=== PATIENT | female | born 1970 | race Caucasian/White ===

== ENCOUNTER 2017-01-25 17:10 | Inpatient (IN) | payer OTHER ==
[~2017-01-25] VITALS: Ht 152.4 cm; Wt 52.2 kg
--- NOTE | 2017-01-25 17:24 | NUR ---
PT STTAES THAT SHE WENT TO [facility] TO BE ADMITTED FOR ETOH DETOX , HAS BEEN DRINKING FOR THE PAST YEAR, PT LAST DETOX WAS AT [facility] FROM 12/15 TILL 01/17 AND STARTED DRINKING AGAIN 01/19. PT LAST DRANK OUTSIDE ER AND STATES THAT SHE DRINKS VODKA DAILY . PT HAS HISTORY OF WITHDRAWAL SEIZURES. DENIES SI/HI. WAS TOLD BY DR SANDRA TO COME IN
--- NOTE | 2017-01-25 19:10 | ED PSYCHIATRIC COMPLAINT ---
History of Present Illness General Chief Complaint: ETOH/Drug Related Complaint Stated Complaint: ALCHOOL DETOX Vital Signs & Intake/Output Vital Signs & Intake/Output Vital Signs Date Time Temp Pulse Resp B/P B/P Pulse O2 O2 Flow FiO2 Mean Ox Delivery Rate 01/25 1716 98.1 108 18 148/102 98 Room Air Allergies Coded Allergies: aspirin (From TALWIN COMPOUND) (Severe, RENAL FAILURE 01/25/17) pentazocine (From TALWIN [employer]) (Severe, RENAL FAILURE 01/25/17) imipramine (Mild, HIVES 01/25/17) Uncoded Allergies: CODIENE (Mild, HIVES 01/25/17) PCN (Mild, RASH 01/25/17) Triage Note: PT STTAES THAT SHE WENT TO [facility] TO BE ADMITTED FOR ETOH DETOX , HAS BEEN DRINKING FOR THE PAST YEAR, PT LAST DETOX WAS AT [facility] FROM 12/15 TILL 01/17 AND STARTED DRINKING AGAIN 01/19. PT LAST DRANK OUTSIDE ER AND STATES THAT SHE DRINKS VODKA DAILY . PT HAS HISTORY OF WITHDRAWAL SEIZURES. DENIES SI/HI. WAS TOLD BY DR SANDRA TO COME IN : No Patient currently breastfeeds: No Past History Travel History Traveled to [place] past 21 day No Medical History Neurological: NONE EENT: NONE Cardiovascular: hypertension Respiratory: NONE Gastrointestinal: NONE Hepatic: NONE Renal: NONE Musculoskeletal: NONE Psychiatric: NONE Endocrine: NONE Blood Disorders: NONE Cancer(s): NONE Psychosocial History What is your primary language Divehi Tobacco Use: Never used ETOH Use: alcoholic Illicit Drug Use: denies illicit drug use Progress Plan of Care: Orders Procedure Date/time Status CIKS 01/26 1912 Active URINE DRUG SCREEN FOR ER ONLY 01/26 1912 Active ETHANOL 01/26 1912 Active COMPREHENSIVE METABOLIC PANEL 01/26 1912 Active CBC WITHOUT DIFFERENTIAL 01/26 1912 Active Departure Departure Condition: Stable Referrals: EMRE PALMER,JACKIE Sy (PCP/Family) Departure Forms: Customer Survey General Discharge Information
[2017-01-25] MEDS ORDERED: CALCIUM 500 +1 EAC5 PO (19:23)
[2017-01-25] MEDS ORDERED: SERTRALINE HCL100 MG PO (19:23)
--- NOTE | 2017-01-25 19:34 | ED PSYCHIATRIC COMPLAINT ---
See Addendum History of Present Illness General Chief Complaint: ETOH/Drug Related Complaint Stated Complaint: ALCHOOL DETOX Source: patient, family Exam Limitations: no limitations Vital Signs & Intake/Output Vital Signs & Intake/Output Vital Signs Date Time Temp Pulse Resp B/P B/P Pulse O2 O2 Flow FiO2 Mean Ox Delivery Rate 01/26 0143 103 18 150/118 01/26 0141 97.3 103 20 150/118 01/26 0020 97.8 98 18 130/80 01/26 0020 97.8 98 18 130/80 97 01/25 2210 98.3 101 18 128/87 01/25 2209 98.3 101 18 128/87 97 Room Air 01/25 2009 97.8 104 18 136/90 98 Room Air 01/26 2008 97.8 104 18 136/90 01/25 2002 Room Air 01/25 1716 98.1 108 18 148/102 98 Room Air ED Intake and Output 01/26 0000 01/25 1200 Intake Total 1000 Output Total Balance 1000 Intake, IV 1000 Intake, Oral 0 Patient 115 lb Weight Allergies Coded Allergies: aspirin (From TALWIN COMPOUND) (Severe, RENAL FAILURE 01/25/17) pentazocine (From TALWIN [employer]) (Severe, RENAL FAILURE 01/25/17) imipramine (Mild, HIVES 01/25/17) Penicillins (RASH 01/25/17) codeine (HIVES 01/25/17) Reconcile Medications Calcium Carbonate/Vitamin D3 (Calcium 500 + D Tablet) (Unknown Strength) TABLET (Unknown Dose) PO DAILY SUPPLEMENT (Reported) Sertraline HCl 100 MG TABLET 1.5 TAB PO DAILY MENTAL HEALTH (Reported) Triage Note: PT STTAES THAT SHE WENT TO [facility] TO BE ADMITTED FOR ETOH DETOX , HAS BEEN DRINKING FOR THE PAST YEAR, PT LAST DETOX WAS AT [facility] FROM 12/15 TILL 01/17 AND STARTED DRINKING AGAIN 01/19. PT LAST DRANK OUTSIDE ER AND STATES THAT SHE DRINKS VODKA DAILY . PT HAS HISTORY OF WITHDRAWAL SEIZURES. DENIES SI/HI. WAS TOLD BY DR SANDRA TO COME IN Triage Nurses Notes Reviewed? yes Onset: Gradual Duration: constant Timing: recent history Severity: severe Severity Numbers: 10 : No Patient currently breastfeeds: No HPI: Patient is a 46-year-old female with past medical history of ETOH dependency and alcohol withdrawal seizures in which last seizure was one month ago where patient was admitted to [facility] [place] FOR alcohol inpatient treatment. Patient states that for the last 4 days she's been persistently drinking alcohol last drink 2 hours prior to arrival. Patient states that she feels as if she is withdrawing. Patient denies any illicit drug use denies any homicidal or suicidal ideation. Has positive for mild nausea. Denies any abdominal pain Patient was evaluated at [facility] and was advised to present to the emergency room for concerns of medical evaluation (MAVERICK LIRA) Past History Travel History Traveled to [facility] past 21 day No Medical History Any Pertinent Medical History? see below for history Neurological: NONE EENT: NONE Cardiovascular: hypertension Respiratory: NONE Gastrointestinal: NONE Hepatic: NONE Renal: NONE Musculoskeletal: NONE Psychiatric: NONE Endocrine: NONE Blood Disorders: NONE Cancer(s): NONE Other Medical Hx: ETOH ABUSE Surgical History Surgical History: non-contributory Psychosocial History What is your primary language Pashto Tobacco Use: Never used ETOH Use: alcoholic Illicit Drug Use: denies illicit drug use Family History Hx Contributory? No (MAVERICK LIRA) Review of Systems Review of Systems Constitutional: Reports: no symptoms. EENTM: Reports: no symptoms. Respiratory: Reports: no symptoms. Cardiovascular: Reports: no symptoms. GI: Reports: see HPI, nausea. Denies: abdominal pain. Genitourinary: Reports: no symptoms. Musculoskeletal: Reports: no symptoms. Skin: Reports: no symptoms. Neurological/Psychological: Reports: no symptoms. Hematologic/Endocrine: Reports: no symptoms. Immunologic/Allergic: Reports: no symptoms. All Other Systems: Reviewed and Negative (MAVERICK LIRA) Physical Exam Physical Exam General Appearance: intoxicated Head: atraumatic Eyes: Bilateral: normal appearance, PERRL, EOMI. Ears, Nose, Throat: normal pharynx, normal ENT inspection Respiratory: normal breath sounds, chest non-tender, no respiratory distress Cardiovascular: regular rate/rhythm Gastrointestinal: normal bowel sounds, soft, non-tender Neurological/Psychiatric: no motor/sensory deficits, awake, calm Appearance/Memory/Insight: appropriate insight, denies illness, disheveled Behavoir/Eye Contact/Speech: cooperative, normal speech, good eye contact Thoughts/Hallucinations: normal thought pattern, no apparent hallucination SAD PERSONS Done? patient not suicidal (MAVERICK LIRA) Progress Differential Diagnosis: drug intoxication, drug overdose, drug withdrawal, electrolyte abnormality, encephalitis, hypoglycemia, hypothyroidism, IC hem/mass /tumor, meningitis Plan of Care: Orders Procedure Date/time Status URINE 01/25 1921 Complete CIWA 01/26 1912 Active URINE DRUG SCREEN FOR ER ONLY 01/26 1912 Complete LIPASE 01/26 1912 Complete ETHANOL 01/26 1912 Complete COMPREHENSIVE METABOLIC PANEL 01/26 1912 Complete CBC WITHOUT DIFFERENTIAL 01/26 1912 Complete AMYLASE 01/26 1912 Complete Current Medications Sig/Sarah Start time Last Medication Dose Stop Time Status Admin Lorazepam 2 MG ONCE ONE 01/26 200 UNVr 01/26 (Ativan) 01/26 201 0153 Lorazepam 2 MG ONCE ONE 01/26 200 UNVr 01/26 (Ativan) 01/26 201 020 Laboratory Tests 01/25/171954: Anion Gap 15, Estimated GFR > 60, BUN/Creatinine Ratio 27.1 H, Glucose 99, Calcium 9.0, Total Bilirubin 0.2, AST 31, ALT 43, Alkaline Phosphatase 149 H, Total Protein 7.1, Albumin 4.6, Globulin 2.5, Albumin/Globulin Ratio 1.8, Amylase 52, Lipase 212, Serum Alcohol 245.0 01/25/171937: Urine Opiates Screen < 100.00, Methadone Screen < 40, Barbiturate Screen < 60, Ur Phencyclidine Scrn < 6.00, Amphetamines Screen < 100, U Benzodiazepines Scrn < 85, Urine Cocaine Screen < 50, Urine Cannabis Screen < 5.00, Urine Test NEGATIVE 01/25/171934: CBC w Diff NO MAN DIFF REQ, RBC 4.78, MCV 83.8, MCH 28.2, RDW 13.4, MPV 6.5 L, Gran % 39.8 L, Lymphocytes % 47.8, Monocytes % 9.2, Eosinophils % 2.7, Basophils % 0.5, Absolute Granulocytes 2.8, Absolute Lymphocytes 3.4, Absolute Monocytes 0.6, Absolute Eosinophils 0.2, Absolute Basophils 0, PUBS MCHC 33.7 01/25/171920: Amylase Cancelled, Lipase Cancelled, Methadone Screen Cancelled, Barbiturate Screen Cancelled, Ur Phencyclidine Scrn Cancelled, Amphetamines Screen Cancelled , U Benzodiazepines Scrn Cancelled, Urine Cocaine Screen Cancelled, Urine Cannabis Screen Cancelled Patient currently shows a 245 alcohol and which first CIWA scoring is 4 4557 REPEAT CIWA 3 0100 REPEAT CIWA 5 Discussed disposition and plan with Dr. Hernández in which patient's had left for the evening where patient will be reevaluated for alcohol withdrawal symptoms and either be admitted if he scores over an 8 or the patient will be admitted to [facility]. Discussed disposition plan with patient who currently agrees and has no questions (MAVERICK LIRA) Hand-Off Endorsed To: LARISA HERNÁNDEZ MD Endorsed Time: 99 Pending: other (CIWA) (MAVERICK LIRA) Departure Departure Disposition: STILL A PATIENT Condition: Stable Referrals: EMRE PALMER,JACKIE Sy (PCP/Family) Departure Forms: Customer Survey General Discharge Information (MAVERICK LIRA) Departure Clinical Impression Primary Impression: Alcohol withdrawal syndrome Admission Note Spoke With: AUGUSTINA TORRES MD Documentation of Exam: Documentation of any treatments & extenuating circumstances including Concerns Regarding Discharge (functional status, medication knowledge or non-compliance, living conditions, etc.) that warrant an admission rather than observation: pt with ciwa of 10, h/o recent seizures... merits admission for alcohol detoxification with iv and po benzos (LARISA HERNÁNDEZ MD) Critical Care Note Critical Care Note Critical Care Time: 30-74 min (ISRAEL PALMER,LARISA Woodard)
--- NOTE | 2017-01-25 19:41 | NUR ---
IV EST, BLOOD WORK DRAWN AND SENT TO LAB: SST, LAV, BLUE, FISCHER AND PINK TOPS. URINE TRIO SENT TO LAB NOW. IV NS LITER BOLUS INFUSING NOW. PT MEDICATED WITH ZOFRAN.
[2017-01-25 19:45] LABS: ABSOLUTE BASOPHIL COUNT 0 /CUMM (0.0-0.2); ABSOLUTE EOSINOPHIL COUNT 0.2 /CUMM (0.0-0.7); ABSOLUTE GRANULOCYTE CT 2.8 /CUMM (1.4-6.5); ABSOLUTE LYMPH COUNT 3.4 /CUMM (1.2-3.4); ABSOLUTE MONOCYTE COUNT 0.6 /CUMM (0.10-0.60); BASOPHIL % 0.5 % (0.0-2.0); EOSINOPHIL % 2.7 % (0-5); GRANULOCYTE % 39.8 % (42.2-75.2); HEMATOCRIT 40.1 % (37-47); MEAN CORPUSCULAR HGB 28.2 PG (27.0-31.0); MEAN CORPUSCULAR HGB CONC 33.7 G/DL (33.0-37.0); MEAN CORPUSCULAR VOLUME 83.8 FL (81.0-99.0); MEAN PLATELET VOLUME 6.5 FL (7.4-10.4); PLATELET COUNT 341 /CUMM (130-400); RBC DISTRIBUTION WIDTH 13.4 % (11.5-14.5); RED BLOOD CELL CT 4.78 /CUMM (4.20-5.40); WHITE BLOOD CELL COUNT 7.1 /CUMM (4.8-10.8)
[2017-01-25 20:08] VITALS: BP 136/90
--- NOTE | 2017-01-25 20:24 | NUR ---
FREDERIC HANLEY AT BEDSIDE TO DISCUSS POC.
--- NOTE | 2017-01-25 21:15 | NUR ---
BOXED LUNCH ORDERED.
--- NOTE | 2017-01-25 21:23 | NUR ---
PT EATING BOXED LUNCH PER FREDERIC Gross PT NOT NEEDING TO BE CHANGED OR WANDED AT THIS TIME
[2017-01-25 22:10] VITALS: BP 128/87
--- NOTE | 2017-01-25 22:14 | NUR ---
PT COMPLAIN OF HIP PAIN. PER PT USUALLY HAS HIP PAIN WHEN W/DING. FREDERIC Gross AWARE.
--- NOTE | 2017-01-25 22:22 | NUR ---
PT MEDICATED WITH MOTRIN PER EMAR
[2017-01-26 00:20] VITALS: BP 130/80
--- NOTE | 2017-01-26 00:57 | NUR ---
FREDERIC Gross AT BEDSIDE TO REEVAL PT
--- NOTE | 2017-01-26 01:11 | NUR ---
PT NOW WANDED AND CHANGED. 1 BELONGING BAG IN CLOSET. PER PT OKAY TO KEEP CELL PHONE.
[2017-01-26 01:43] VITALS: BP 150/118
--- NOTE | 2017-01-26 01:55 | NUR ---
AT BEDSIDE TO KAYLYNN
--- NOTE | 2017-01-26 02:02 | NUR ---
CIWA 10. PT MEDICATED WITH 2 MG ATIVN PO, FOLLOWED BY 2 MG ATIVAN IV PER DR WOOD.
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
--- NOTE | 2017-01-26 02:37 | NUR ---
HOUSE STAFF AT BEDSIDE TO EVAL PT
[2017-01-26 03:30] VITALS: BP 126/84
--- NOTE | 2017-01-26 03:45 | NUR ---
PT BED ASSIGNMENT 209-2
--- NOTE | 2017-01-26 03:49 | NUR ---
REPORT GIVEN TO ERIK SHAW
--- NOTE | 2017-01-26 04:01 | Admission Certification ---
Admission Certification Certification Statement - As attending physician, I certify that at the time of - admission, based on clinical presentation, severity of - symptoms, need for further diagnostic testing and - therapeutic interventions, and risk of adverse outcomes - without in-hospital treatment, in my clinical assessment, - this patient requires an acute hospital stay for a minimum - of two nights or longer. I have also considered psychsocial - factors such as support system, advanced age, financial - issues, cognitive issues, and failed out-patient treatments, - past re-admission history, safety of patient, and lack of - compliance as applicable. Specific rationale supporting this admission is: Alcohol withdrawal.
[2017-01-26 04:33] VITALS: BP 136/80
[2017-01-26 05:11] VITALS: BP 136/80
--- NOTE | 2017-01-26 11:26 | PN- Att Addend ---
Attending Addendum Attending Brief Note "46 yo F with h/o alcohol dependence, withdrawal seizure, PAT (paroxysmal atrial tachycardia), depression, last detoxed at [facility] (December 2016), resumed drinking soon after, and today went to [facility] for alcohol detox, but was asked to come to ER due to high alcohol levels. She drinks Vodka daily (unable to quantify), last drink was yesterday prior to ER arrival. She had nausea and bilious vomiting, occasional heartburn, but no melena or hematemesis. Her alcohol level was 245 and her CIWAs were 8-10 in the ER. Last seizure was early this year. Ex-smoker, denies drug use. VSS. Exam unremarkable except for tremors, dry mucous membranes. Labs: BUN 19, Alk phos 149. Utox neg." 1. Alcohol withdrawal. GM admit, seizure precautions, CIWA protocol, IV ativan per CIWA, PO ativan 2 mg Q6, banana bag, Social work consult transition to [facility] for inpatient rehab, Psych consult for depression, continue zoloft. Anti-emetics and PPI for heartburn/alcoholic gastritis. Clonidine PRN for hypertension. DVT ppx Lovenox. Full code. Plan as per admitting physician, monitor CIWA, call me if any changes
--- NOTE | 2017-01-26 13:23 | Cons- Psychiatry ---
Psychiatric Consult Date of Consult: 01/26/17 Reason for Consult: Alcohol abuse and depression Allergies: Coded Allergies: aspirin (From [employer]) (Severe, RENAL FAILURE 01/25/17) pentazocine (From [employer]) (Severe, RENAL FAILURE 01/25/17) imipramine (Mild, HIVES 01/25/17) Penicillins (RASH 01/25/17) codeine (HIVES 01/25/17) Past History Past Medical History Neurological: NONE EENT: NONE Cardiovascular: hypertension associated with alcohol withdrawal Respiratory: NONE Gastrointestinal: NONE Hepatic: NONE Renal: NONE Musculoskeletal: NONE Psychiatric: alcohol dependence, depression Endocrine: NONE Blood Disorders: NONE Cancer(s): NONE Past Surgical History Surgical History: knee repair Assessment/Plan Impression: Chief complaint: "I'm not sure how much I drank yesterday " Brief HPI: 46-year-old woman, , domiciled, living in [facility] with her and 6 children with one year history of heavy alcohol use starting in October 2015 in the context of a chronic knee injury requiring surgery as well as the loss of multiple close friends, presents to [facility] for alcohol intoxication and subsequent withdrawal. Admitted to [facility] in 2016 with an alcohol withdrawal seizure, eventually requiring Ativan drip. From there attended intensive outpatient program at [facility] for about 2 months earlier in 2016, relapsed and engaged in [facility] inpatient program for 28 days, was discharged on January 17. Relapsed after 2 days. Says that she's been drinking roughly a bottle of vodka daily. Attempted to admit to [facility] yesterday however was sent to the ER due to her elevated blood alcohol level. She was subsequently admitted to the medical floor for alcohol withdrawal. Past psychiatric and substance use history: Patient denies any history of problematic alcohol or substance use prior to her roughly 1.5 years of drinking. Most notable past psychiatric history is history of panic disorder beginning in mid teenage years that improved on imipramine and with psychotherapy. Resumed counseling in college. Also notes a history of some obsessive-compulsive symptoms that are brought about by stress whereby she will check the oven and checking alarm clock setting dozens and dozens of times resulting in delay of her ability to leave the house. However she denies any history of psychiatric hospitalizations, suicide attempts, suicidal or homicidal ideation. She does note that her mood has been poor, tearful, however she largely attributes this to her significant alcohol use. Says that she is looking forward to being sober so that she can be further assessed for any sort of [id number] mood disorder. She visited an outpatient psychiatrist in the community for my understanding an evaluation and was given a diagnosis of an unspecified depressive disorder and started on Zoloft with no substantial change in mood. She was treated with naltrexone by mouth for 2 weeks but says that she developed intolerable side effects with medication and does not want to resume. We discussed possibly starting acamprosate in the near future when she is at [facility] and she says that she will consider discussing this medication with her psychiatrist there. Past medical history as above Pertinent meds: Zoloft 150 mg by mouth daily Family history of alcohol use in both parents as well as both sets of grandparents. Also strong family history of anxiety spectrum disorders. SH (per chart): alcohol abuse. smoked 1ppd for 20 years, quit in 2002. distant marijuana use. denies cocaine, heroin, ivda. She lives at home with her , 6 kids (age 19,17,14,13,11,5), and has pets including chicken, snake, and dog Mental status exam: Pleasant, adequately groomed female resting comfortably supine on hospital bed. She is cooperative with interview with fair eye contact. Mildly tearful at times. Speech was normal limits. Mood was "not so good ". Affect was constricted, mildly labile, congruent. Thought process was logical and linear. Thought content was within normal limits. She denies suicidal or homicidal ideation. She denies any auditory visual hallucinations. Cognition: She was alert, oriented to name, date, place, situation. Her immediate and delayed memory were intact. Insight and judgment were fair. Pertinent labs and studies Admission blood alcohol level was 245 BMP and CBC was largely within normal limits on admission Assessment: 46 year old female , not working, with strong family history of alcohol use disorder and anxiety, personal history of panic disorder beginning in her teenage years, who developed problematic alcohol use over the past year and a half. 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 Recommendations: -No indication for acute psychiatric hospitalization -Continue treatment for alcohol withdrawal syndrome as her doing. -Agree with disposition to [facility] upon resolution of alcohol withdrawal symptoms -Continue sertraline for now -Defer to aftercare psychiatrist at [facility] for initiation of alcohol use disorder pharmacotherapy such as acamprosate -Thank you for this consult.
[2017-01-26 14:59] VITALS: BP 120/72
[2017-01-27 07:26] VITALS: BP 156/104
--- NOTE | 2017-01-27 08:22 | PN- Housestaff ---
JES ANGUIANO 01/27/17 0821: Subjective Follow-up For: Alcohol detoxification Complaints: pain scale (0-10) Subjective: Patient was seen and examined this morning. She is alert, awake and oriented to time place and person. No acute events noticed overnight. He denies any nausea, vomiting, abdominal pain. She denies any anxiety, tremors, hallucinations. She denies any withdrawal seizures She denies any fever, chills, headache, weakness, gait changes. vitals stable this morning afebrile, heart rate 72, respiratory rate 18, blood pressure 156/40, saturating at 96 on room air. Review of Systems Constitutional: Denies: chills, diaphoresis, fever, malaise, weakness. Objective Last 24 Hrs of Vital Signs/I&O Vital Signs Date Time Temp Pulse Resp B/P B/P Pulse O2 O2 Flow FiO2 Mean Ox Delivery Rate 01/27 0726 97.9 72 18 156/104 96 Room Air 01/27 0013 80 146/80 01/26 1459 98.5 100 20 120/72 95 Room Air 01/26 1124 105 162/104 Intake & Output 01/27 1600 01/27 0800 01/27 0000 Intake Total 240 Output Total Balance 240 Intake, Oral 240 Physical Exam General Appearance: Alert, Oriented X3, Cooperative, No Acute Distress Skin: No Rashes, No Breakdown HEENT: Atraumatic, PERRLA, EOMI, Mucous Membr. moist/pink Neck: Supple, No JVD Lymphatic: Cervical nl Cardiovascular: Normal S1, Normal S2 Lungs: Normal Air Movement Abdomen: Normal Bowel Sounds, Soft, No Tenderness Neurological: Normal Speech, Strength at 5/5 X4 Ext, Normal Tone, Sensation Intact Extremities: No Clubbing, No Cyanosis, No Edema Vascular: Pulses Symmetrical Current Medications: Current Medications Sig/Sarah Start time Last Medication Dose Route Stop Time Status Admin Calcium/Vitamin D 500 MG DAILY 01/27 1007 AC PO Cholecalciferol 2,000 IU DAILY 01/27 1100 UNVr PO Clonidine 0.1 MG Q6 01/26 1200 AC 01/27 PO 0636 Clonidine 0.1 MG TID PRN 01/26 0515 AC PO Cyanocobalamin/ 1 BAG ONCE ONE 01/26 0715 DC 01/26 Thiamine/Pyridoxine IV 01/26 1514 1158 Dextrose/Water 1,000 ML Enoxaparin Sodium 40 MG DAILY 01/26 1000 AC 01/27 SC 0937 Folic Acid 1 MG DAILY 01/26 1000 AC 01/27 PO 0942 Ibuprofen 400 MG Q6P PRN 01/27 0930 AC 01/27 PO 0937 Lorazepam 1.5 MG Q6 01/27 1200 UNVr PO Lorazepam 2 MG Q6 01/26 0600 DC 01/27 PO 0636 Lorazepam See Dose Q1P PRN 01/26 0345 AC 01/27 Insts (1) IV 1056 Multivitamins 1 TAB DAILY 01/26 1000 AC 01/27 PO 0937 Omeprazole 40 MG DAILY AC 01/26 0700 AC 01/27 PO 0636 Sertraline HCl 150 MG DAILY 01/26 1000 AC 01/27 PO 0937 Thiamine HCl 100 MG DAILY 01/26 1000 AC 01/27 PO 0937 Dose Instructions: (1)Lorazepam: See admin criteria Last 24 Hrs of Lab/Myles Results Last 24 Hrs of Labs/Mics: Laboratory Tests 01/27/17 0703: Anion Gap 11, Estimated GFR > 60, BUN/Creatinine Ratio 21.7 Assessment/Plan Assessment: 46-year-old female with PMH of alcohol abuse with depression, alcohol withdrawal seizuire requiring ativan drip at [facility] in early 2016, presented to the hospital requesting alcohol detox because [facility] would not take her due to her high blood alcohol level. Vitals on admission-afebrile, heart rate 108, respiratory rate 18, blood pressure 148/102, saturating at 98 on room Pertinent labs on admission CBCs and BEP normal Serum alcohol 245 on admission. In the ED, she received a total of 4 mg of ativan, and CIWA score was up to 10. alcohol detoxification 46-year-old female with PMH of alcohol abuse with depression, alcohol withdrawal seizuire requiring ativan drip at [facility] in early 2016, presented to the hospital requesting alcohol detox. Serum alcohol 245 on admission. She was first admitted at [facility] in early 2016 with alcohol withdrawal seizure requiring iv Ativan drip. She was at [facility] on 12/15 to 01/17. She started drinking again on 01/19/17. She was trying to get into [facility] 01/25/17 but was told to come to the ED due to her blood alcohol level, otherwise they have a bed for her. Her last drink was around 5pm on 01/25/17, just prior to coming to the ED. Her withdrawal symptoms mainly consists of high blood pressure, anxiety, and shakiness. * She was admitted to general medicine for further management of alcohol detoxification * Monitor vitals closely every shift * Maintain oxygen saturation above 90% * Monitor for withdrawal symptoms * Monitor for hallucinations, anxiety, tremors, seizures, tachycardia * CIWA protocol * IV Ativan per ciwa * Ativan 1.5 mg every 6hrs * Taper ativan based on ciwa * Psychiatric consulted * printing table worker consult * Multivitamin * Thiamine * Folate * GI prophylaxis Prilosec 40 daily * Clonidine when necessary for hypertension * Follow-up psychiatric recommendations * Pt will go to [facility] at discharge * No indication for acute psychiatric hospitalization depression She was diagnosed with depression during the time that she was drinking heavily and was started on zoloft, which she is currently on. * She would like psych re-evaluation * psych on board * continue Zoloft as per psych hip pain Patient usually takes Motrin at home for his pain We'll continue monitoring for now continue motrin for pain Diet: regular DVT ppx: mech and pharm FULL CODE Problem List: 1. Alcohol withdrawal syndrome Pain Ratin Pain Location: hip pain Pain Goal: Remain pain free Pain Plan: ibuprofen Tomorrow's Labs & Rationales: no labs KRISTI SCOTT 01/27/17 0953: Attending MD Review Statement Attending Statement Attending MD Statement: examined this patient, discuss w/resident/PA/[employer]AVELING SALES EXECUTIVE, agreed w/resident/PA/TRAVELING SALES EXECUTIVE, discussed with family, reviewed EMR data (avail), discussed with nursing, discussed with case mgmt, reviewed images, amended to note Attending Assessment/Plan: ASSESSMENT 1. Alcohol withdrawal 2. Depression 3. GERD Plan: Admit to Gen Med IV Ativan as per CIWA protocol C/W PO multivitamins, thiamine and folic acid daily Clonidine 0.1 mg TID prn Monitor electrolytes and relplete accordingly psych appreciated for history of depression Social work consult DVT ppx SC lovenox Patient is full code plan of care d;wed patient and .
[2017-01-27 12:00] VITALS: BP 134/100
[2017-01-27 15:06] VITALS: BP 123/58
--- NOTE | 2017-01-27 20:31 | NUR ---
PT'S , ERMIAS, CALLED CONCERNED ABOUT TEXT MESSAGES HE AND OTHER FAMILY AND FRIENDS ARE RECEIVING FROM THE PT. PER ERMIAS, PT IS STATING THAT SHE IS GOING TO LEAVE AMA. PT PRESENTING TO NURSING STAFF WITH NO COMPLAINTS. MATCH MAKER MARY KATE HATCH NOTIFIED THAT WOULD LIKE TO SPEAK WITH MD AND STATES SHE WILL GIVE HIM A CALL AT THIS TIME.
--- NOTE | 2017-01-27 20:34 | Event Note ---
Event Note Event Note: Was told by nurse pt's is concerned that patient might sign out AMA. Patient is currently calm, denying wanting to leave AMA to nursing staff, however her is reporting she is texting him and other family members/ friends "I can't take this anymore, I want to leave". In the past, she has signed out AMA and started drinking immediately and found passed out before even getting home. I tried to reach him over the phone but it went to voicemail.
[2017-01-27 23:29] VITALS: BP 132/90
[2017-01-28 07:46] VITALS: BP 124/91
--- NOTE | 2017-01-28 09:15 | PN- Housestaff ---
KALLI PALMER,GAMALIEL 01/28/17 0915: Subjective Follow-up For: Alcohol detoxification Complaints: no complaints Subjective: Patient doing well today, no complaint Review of Systems Constitutional: Denies: see HPI. Objective Last 24 Hrs of Vital Signs/I&O Vital Signs Date Time Temp Pulse Resp B/P B/P Pulse O2 O2 Flow FiO2 Mean Ox Delivery Rate 01/28 1446 98.0 78 20 116/60 97 Room Air 01/28 1232 73 102/69 01/28 0746 97.7 79 20 124/91 96 Room Air 01/28 0617 79 124/91 01/27 2329 98.1 71 20 132/90 97 Room Air 01/27 2300 139/70 01/27 1803 86 140/104 01/27 1506 97.6 70 20 123/58 99 Room Air Physical Exam General Appearance: Alert, Oriented X3, Cooperative, No Acute Distress Skin: No Significant Lesion HEENT: PERRLA, Mucous Membr. moist/pink Cardiovascular: Regular Rate, Normal S1, Normal S2 Lungs: Clear to Auscultation, Normal Air Movement Abdomen: Normal Bowel Sounds, Soft, No Tenderness Extremities: No Edema, Normal Pulses Current Medications: Current Medications Sig/Sarah Start time Last Medication Dose Route Stop Time Status Admin Calcium/Vitamin D 500 MG DAILY 01/27 1007 AC 01/28 PO 1012 Cholecalciferol 2,000 IU DAILY 01/27 1100 AC 01/28 PO 1012 Clonidine 0.1 MG Q6 01/26 1200 AC 01/28 PO 1232 Clonidine 0.1 MG TID PRN 01/26 0515 AC PO Enoxaparin Sodium 40 MG DAILY 01/26 1000 AC 01/28 SC 1013 Folic Acid 1 MG DAILY 01/26 1000 AC 01/28 PO 1012 Ibuprofen 400 MG Q6P PRN 01/27 0930 AC 01/27 PO 0937 Lorazepam 1 MG TID 01/28 1600 AC PO Lorazepam 1.5 MG Q6 01/27 1200 DC 01/28 PO 1230 Lorazepam See Dose Q1P PRN 01/26 0345 AC 01/28 Insts (1) IV 1253 Multivitamins 1 TAB DAILY 01/26 1000 AC 01/28 PO 1013 Omeprazole 40 MG DAILY AC 01/26 0700 AC 01/28 PO 0617 Sertraline HCl 150 MG DAILY 01/26 1000 AC 01/28 PO 1012 Thiamine HCl 100 MG DAILY 01/26 1000 AC 01/28 PO 1013 Dose Instructions: (1)Lorazepam: See admin criteria Lines/Diet/Fluids Lines: peripheral lines Assessment/Plan Assessment: 46-year-old female with PMH of alcohol abuse with depression, alcohol withdrawal seizuire requiring ativan drip at [facility] in early 2016, presented to the hospital requesting alcohol detox because [facility] would not take her due to her high blood alcohol level. Vitals on admission-afebrile, heart rate 108, respiratory rate 18, blood pressure 148/102, saturating at 98 on room Pertinent labs on admission CBCs and BEP normal Serum alcohol 245 on admission. In the ED, she received a total of 4 mg of ativan, and CIWA score was up to 10. alcohol detoxification * She was admitted to general medicine for further management of alcohol detoxification * Monitor vitals closely every shift * Maintain oxygen saturation above 90% * Monitor for withdrawal symptoms * Monitor for hallucinations, anxiety, tremors, seizures, tachycardia * CIWA protocol * IV Ativan per ciwa * Ativan taper 1mg every 8hrs * wax ball knock out worker consult * Multivitamin * Thiamine * Folate * GI prophylaxis Prilosec 40 daily * Clonidine when necessary for hypertension * Follow-up psychiatric recommendations * Pt will go to [facility] at discharge * No indication for acute psychiatric hospitalization depression She was diagnosed with depression during the time that she was drinking heavily and was started on zoloft, which she is currently on. * She would like psych re-evaluation * psych on board * continue Zoloft as per psych hip pain Patient usually takes Motrin at home for her pain We'll continue monitoring for now continue motrin for pain Diet: regular DVT ppx: mech and pharm FULL CODE Problem List: 1. Alcohol dependence Pain Ratin Pain Location: n/a Pain Goal: Remain pain free Pain Plan: continue current plan Tomorrow's Labs & Rationales: none-stable labs SONIA,KRISTI 01/28/17 1016: Attending MD Review Statement Attending Statement Attending MD Statement: examined this patient, discuss w/resident/PA/[employer] MEMBER, agreed w/resident/PA/[employer], discussed with family, reviewed EMR data (avail), discussed with nursing, discussed with case mgmt, reviewed images, amended to note Attending Assessment/Plan: ASSESSMENT 1. Alcohol withdrawal 2. Depression 3. GERD Plan: Admit to [facility] IV Ativan as per CIWA protocol, taper ongoing C/W PO multivitamins, thiamine and folic acid daily Clonidine 0.1 mg TID prn Monitor electrolytes and relplete accordingly psych appreciated for history of depression Social work consult DVT ppx SC lovenox Patient is full code plan of care d;wed patient and .
[2017-01-28 14:46] VITALS: BP 116/60
--- NOTE | 2017-01-28 18:58 | NUR ---
NSG NOTE LATE ENTRY: PATIENT DRESSED HERSELF IN STREET CLOTHES AND STATED SHE WAS GOING FOR A WALK; THIS RN AND YAZMIN STAFFORD FOLLOWED PATIENT AND SHE ATTEMPTED TO LEAVE VIA EXIT AT THE A-SIDE; YAZMIN STAFFORD WAS ABLE TO APPROACH PATIENT AND THIS RN LED HER BACK TO HER ROOM; PATIENT THEN CHANGED INTO [place]; PATIENT STATED, "IT DOESNT MATTER IF I AM IN MY CLOTHES OR THE PAJAMAS I WILL TRY AND LEAVE EITHER WAY"; PATIENT STATES SHE IS UPSET THAT NONE OF HER FAMILY MEMBERS CAME TO VISIT HER SINCE SHES BEEN ADMITTED; THIS RN SPOKE TO YASMEEN (PATIENTS ); YASMEEN STATED THAT HE DIDNT WANT TO EXPOSE HIMSELF OR HIS CHILDREN TO HIS AND THE ENVIRONMENT COULD MAKE IT WORSE FOR HER; MAILE #[id number] IS AWARE OF PATIENTS FLIGHT RISK AT THIS TIME;
[2017-01-28 22:51] VITALS: BP 118/84
[2017-01-29 06:00] VITALS: BP 118/68
--- NOTE | 2017-01-29 07:13 | PN- Housestaff ---
JES ANGUIANO 01/29/17 0713: Subjective Follow-up For: Alcohol detoxification Complaints: no complaints Subjective: Patient was seen and examined this morning. She is alert, awake and oriented to time place and person. No acute events noticed overnight. He denies any nausea, vomiting, abdominal pain. She denies any anxiety, tremors, hallucinations. She denies any withdrawal seizures She denies any fever, chills, headache, weakness, gait changes. Reports hip pain which is chronic vitals stable this morning afebrile, heart rate 72, respiratory rate 18, blood pressure 116/60, saturating at 96 on room air. Review of Systems Constitutional: Denies: chills, diaphoresis, fever, malaise, weakness. Objective Last 24 Hrs of Vital Signs/I&O Vital Signs Date Time Temp Pulse Resp B/P B/P Pulse O2 O2 Flow FiO2 Mean Ox Delivery Rate 01/29 1441 98.0 83 18 100/60 97 Room Air 01/29 1158 88 110/70 01/29 0601 84 118/68 01/29 0600 98.3 84 18 118/68 95 Room Air 01/28 2333 78 124/68 01/28 2251 98.1 88 18 118/84 98 Room Air 01/28 1716 86 133/69 Intake & Output 01/29 1600 01/29 0800 01/29 0000 Intake Total 300 120 240 Output Total 420 Balance 300 120 -180 Intake, Oral 300 120 240 Output, Urine 420 Physical Exam General Appearance: Alert, Oriented X3, Cooperative, No Acute Distress Skin: No Rashes, No Breakdown HEENT: Atraumatic, PERRLA, EOMI, Mucous Membr. moist/pink Neck: Supple, No JVD Lymphatic: Cervical nl Cardiovascular: Normal S1, Normal S2 Lungs: Normal Air Movement Abdomen: Normal Bowel Sounds, Soft, No Tenderness Neurological: Strength at 5/5 X4 Ext, Sensation Intact, Cranial Nerves 3-12 NL Extremities: No Clubbing, No Cyanosis, No Edema Vascular: Pulses Symmetrical Current Medications: Current Medications Sig/Sarah Start time Last Medication Dose Route Stop Time Status Admin Calcium/Vitamin D 500 MG DAILY 01/27 1007 AC 01/29 PO 0902 Cholecalciferol 2,000 IU DAILY 01/27 1100 AC 01/29 PO 0901 Clonidine 0.1 MG Q6 01/26 1200 AC 01/29 PO 1158 Clonidine 0.1 MG TID PRN 01/26 0515 AC PO Enoxaparin Sodium 40 MG DAILY 01/26 1000 AC 01/29 SC 0901 Folic Acid 1 MG DAILY 01/26 1000 AC 01/29 PO 0902 Ibuprofen 400 MG Q6P PRN 01/27 0930 AC 01/29 PO 0901 Lorazepam 1 MG DAILY 01/30 1000 AC PO 01/30 2300 Lorazepam 1 MG BID 01/29 2200 AC PO 01/29 2300 Lorazepam 1 MG TID 01/28 1600 DC 01/29 PO 0902 Lorazepam See Dose Q1P PRN 01/26 0345 AC 01/29 Insts (1) IV 1026 Multivitamins 1 TAB DAILY 01/26 1000 AC 01/29 PO 0901 Omeprazole 40 MG DAILY AC 01/26 0700 AC 01/29 PO 0601 Patient Medication 1 ED .STK-MED ONE 01/29 1347 DC Teaching ED 01/29 1348 Sertraline HCl 150 MG DAILY 01/26 1000 AC 01/29 PO 0901 Thiamine HCl 100 MG DAILY 01/26 1000 AC 01/29 PO 0901 Dose Instructions: (1)Lorazepam: See admin criteria Assessment/Plan Assessment: 46-year-old female with PMH of alcohol abuse with depression, alcohol withdrawal seizuire requiring ativan drip at [facility] in early 2016, presented to the hospital requesting alcohol detox because [facility] would not take her due to her high blood alcohol level. Vitals on admission-afebrile, heart rate 108, respiratory rate 18, blood pressure 148/102, saturating at 98 on room Pertinent labs on admission CBCs and BEP normal Serum alcohol 245 on admission. In the ED, she received a total of 4 mg of ativan, and CIWA score was up to 10. alcohol detoxification 46-year-old female with PMH of alcohol abuse with depression, alcohol withdrawal seizuire requiring ativan drip at [facility] in early 2016, presented to the hospital requesting alcohol detox. Serum alcohol 245 on admission. She was first admitted at [facility] in early 2016 with alcohol withdrawal seizure requiring iv Ativan drip. She was at [facility] on 12/15 to 01/17. She started drinking again on 01/19/17. She was trying to get into [facility] 01/25/17 but was told to come to the ED due to her blood alcohol level, otherwise they have a bed for her. Her last drink was around 5pm on 01/25/17, just prior to coming to the ED. Her withdrawal symptoms mainly consists of high blood pressure, anxiety, and shakiness. * She was admitted to general medicine for further management of alcohol detoxification * Monitor vitals closely every shift * Maintain oxygen saturation above 90% * Monitor for withdrawal symptoms * Monitor for hallucinations, anxiety, tremors, seizures, tachycardia * [facility] protocol * IV Ativan per ciaz * Ativan taper 1mg bid * icebox worker consult * Multivitamin * Thiamine * Folate * GI prophylaxis Prilosec 40 daily * Clonidine when necessary for hypertension * Follow-up psychiatric recommendations * Pt will go to [facility] at discharge * No indication for acute psychiatric hospitalization depression She was diagnosed with depression during the time that she was drinking heavily and was started on zoloft, which she is currently on. * She would like psych re-evaluation * psych on board * continue Zoloft as per psych * icebox worker on board hip pain Patient usually takes Motrin at home for her pain We'll continue monitoring for now continue motrin for pain Diet: regular DVT ppx: mech and pharm FULL CODE Problem List: 1. Alcohol dependence 2. Alcohol withdrawal syndrome Pain Ratin Pain Location: Hip pain Pain Goal: Remain pain free Pain Plan: Motrin Tomorrow's Labs & Rationales: None SONIA,KRISTI 01/29/17 1206: Attending MD Review Statement Attending Statement Attending MD Statement: examined this patient, discuss w/resident/PA/GROUP SEGMENT CONSULTANT, agreed w/resident/PA/GROUP SEGMENT CONSULTANT, discussed with family, reviewed EMR data (avail), discussed with nursing, discussed with case mgmt, reviewed images, amended to note Attending Assessment/Plan: ASSESSMENT 1. Alcohol withdrawal 2. Depression 3. GERD Plan: Admit to Gen Med IV Ativan as per [facility] protocol, taper ongoing C/W PO multivitamins, thiamine and folic acid daily Clonidine 0.1 mg TID prn Monitor electrolytes and relplete accordingly psych appreciated for history of depression Social work consult DVT ppx SC lovenox Patient is full code plan of care d;wed patient and . anticipate d/c soon
[2017-01-29] MEDS ORDERED: ONE DAILY MULT1 EAC2 PO (07:37)
[2017-01-29] MEDS ORDERED: FOLIC ACID1 M1 PO (07:37)
[2017-01-29] MEDS ORDERED: VITAMIN B-1100 MG PO (07:37)
[2017-01-29] MEDS ORDERED: OMEPRAZOLE20 M2 PO (07:38)
--- NOTE | 2017-01-29 07:49 | Patient Discharge Instructions ---
Discharge Instructions General Discharge Information You were seen/treated for: alcohol detoxification You had these procedures: none Special Instructions: please follow up your pcp in 1-2 weeks Diet Continue normal diet: Yes Activity Full Activity/No Limits: Yes Acute Coronary Syndrome Inclusion Criteria At DC or during hospital stay patient has or had the following: ACS DIAGNOSIS No Discharge Core Measures Meds if any: Prescribed or Continued at Discharge Meds if any: NOT Prescribed or Continued at Discharge Congestive Heart Failure Inclusion Criteria At DC or during hospital stay patient has or had the following: CHF DIAGNOSIS No Discharge Core Measures Meds if any: Prescribed or Continued at Discharge Meds if any: NOT Prescribed or Continued at Discharge Cerebrovascular accident Inclusion Criteria At DC or during hospital stay patient has or had the following: CVA/TIA Diagnosis No Discharge Core Measures Meds if any: Prescribed or Continued at Discharge Meds if any: NOT Prescribed or Continued at Discharge Venous thromboembolism Inclusion Criteria VTE Diagnosis No VTE Type NONE VTE Confirmed by (Test) NONE Discharge Core Measures - Per Current guidelines, there needs to be overlap - treatment for the first 5 days of Warfarin therapy. - If discharged on Warfarin prior to 5 days of - overlap therapy, the patient will need to be - assessed for post discharge needs including - *Post discharge parental anticoagulation - *Warfarin and/or parental anticoagulation education - *Follow up date to check INR post discharge At least 5 days overlap therapy as Inpatient No Meds if any: Prescribed or Continued at Discharge Note: Overlap Therapy is Warfarin and Anticoagulant Meds if any: NOT Prescribed or Continued at Discharge
--- NOTE | 2017-01-29 12:21 | NUR ---
ASSUMED CARE OF PATIENT AT 1130 AM, PATIENT SLEEPING AT THAT TIME, UPON WAKING, PATIENT A/O, RESTING COMFORTABLY, NO NOTICABLE TREMOR OR SWEATING, SOME MILD ANXIETY, MEDICATED PER EMAR FOR B/P CONTROL, IV INTACT, NO ISSUES NOTED AT THIS TIME, WILL MONITOR APPROPRIATE. CURRENTLY EATING LUNCH WITH NO DIFFICULTY.
[2017-01-29 14:41] VITALS: BP 100/60
--- NOTE | 2017-01-29 19:10 | NUR ---
Referral received this am via electronic border inspector. This patient is a 46 year old woman, admitted to the hospital for ETOH detox. Patient had presented to an inpatient ETOH Rehab facility, but was sent here for detox. Patient was placed on the CIWA; last evening patient was confused and threatened to leave AMA. I met with Radha this am. She was pleasant, alert and oriented and engaged in interview. Expects to transfer back to [facility] when detox is finished. Radha signed a release and appropriate clinical was FAXED to [facility]; receipt received and bed will be available when patient cleared medically. Follow.
[2017-01-29 22:15] VITALS: BP 92/74
--- NOTE | 2017-01-30 00:46 | Event Note ---
Event Note Event Note: bp 92/74, asymptomatic. clonidine held changed clonidine order to prn systolic > 140 ordered melatonin for sleep
[2017-01-30 06:37] VITALS: BP 100/68
--- NOTE | 2017-01-30 07:32 | PN- Housestaff ---
See Addendum Subjective Follow-up For: Alcohol detoxification Complaints: pain scale (0-10) Subjective: Patient was seen and examined this morning. She is alert, awake and oriented to time place and person. No acute events noticed overnight. He denies any nausea, vomiting, abdominal pain. She denies any anxiety, tremors, hallucinations. She denies any withdrawal seizures She denies any fever, chills, headache, weakness, gait changes. Reports hip pain which is chronic vitals stable this morning afebrile, heart rate 72, respiratory rate 18, blood pressure 116/60, saturating at 96 on room air. Review of Systems Constitutional: Denies: chills, diaphoresis, fever, malaise. Objective Last 24 Hrs of Vital Signs/I&O Vital Signs Date Time Temp Pulse Resp B/P B/P Pulse O2 O2 Flow FiO2 Mean Ox Delivery Rate 01/30 0637 97.6 83 18 100/68 97 Room Air 01/30 0031 92/74 01/29 2215 98.2 80 18 92/74 99 01/29 1723 66 110/70 01/29 1441 98.0 83 18 100/60 97 Room Air 01/29 1158 88 110/70 Intake & Output 01/30 1600 01/30 0800 01/30 0000 Intake Total Output Total 1 Balance -1 Output, Urine 1 Physical Exam General Appearance: Alert, Oriented X3, Cooperative, No Acute Distress Skin: No Rashes, No Breakdown HEENT: Atraumatic, PERRLA, EOMI, Mucous Membr. moist/pink Neck: Supple, No JVD Lymphatic: Cervical nl Cardiovascular: Normal S1, Normal S2 Lungs: Normal Air Movement Abdomen: Normal Bowel Sounds, Soft, No Tenderness Neurological: Strength at 5/5 X4 Ext, Normal Tone, Cranial Nerves 3-12 NL Extremities: No Clubbing, No Cyanosis, No Edema Vascular: Normal Pulses, Pulses Symmetrical Current Medications: Current Medications Sig/Sarah Start time Last Medication Dose Route Stop Time Status Admin Calcium/Vitamin D 500 MG DAILY 01/27 1007 AC 01/30 PO 09 Cholecalciferol 2,000 IU DAILY 01/27 1100 AC 01/30 PO 0928 Clonidine 0.1 MG Q6 PRN 01/30 0045 AC PO Clonidine 0.1 MG Q6 01/26 1200 DC 01/29 PO 1723 Clonidine 0.1 MG TID PRN 01/26 0515 AC PO Enoxaparin Sodium 40 MG DAILY 01/26 1000 AC 01/29 SC 0901 Folic Acid 1 MG DAILY 01/26 1000 AC 01/30 PO 0927 Ibuprofen 400 MG Q6P PRN 01/27 0930 AC 01/29 PO 0901 Lorazepam 1 MG DAILY 01/30 1000 AC 01/30 PO 01/30 2300 0927 Lorazepam 1 MG BID 01/29 2200 DC 01/29 PO 01/29 2300 2131 Lorazepam 1 MG TID 01/28 1600 DC 01/29 PO 0902 Lorazepam See Dose Q1P PRN 01/26 0345 AC 01/29 Insts (1) IV 1026 Melatonin 5 MG AT BEDTIME 01/30 0045 AC PO Multivitamins 1 TAB DAILY 01/26 1000 AC 01/30 PO 0927 Omeprazole 40 MG DAILY AC 01/26 0700 AC 01/30 PO 0702 Patient Medication 1 ED .STK-MED ONE 01/29 1347 DC Teaching ED 01/29 1348 Sertraline HCl 150 MG DAILY 01/26 1000 AC 01/30 PO 0928 Thiamine HCl 100 MG DAILY 01/26 1000 AC 01/30 PO 0927 Dose Instructions: (1)Lorazepam: See admin criteria Assessment/Plan Assessment: 46-year-old female with PMH of alcohol abuse with depression, alcohol withdrawal seizuire requiring ativan drip at [facility] in early 2016, presented to the hospital requesting alcohol detox because [facility] would not take her due to her high blood alcohol level. Vitals on admission-afebrile, heart rate 108, respiratory rate 18, blood pressure 148/102, saturating at 98 on room Pertinent labs on admission CBCs and BEP normal Serum alcohol 245 on admission. In the ED, she received a total of 4 mg of ativan, and CIWA score was up to 10. alcohol detoxification 46-year-old female with PMH of alcohol abuse with depression, alcohol withdrawal seizuire requiring ativan drip at [facility] in early 2016, presented to the hospital requesting alcohol detox. Serum alcohol 245 on admission. She was first admitted at [facility] in early 2016 with alcohol withdrawal seizure requiring iv Ativan drip. She was at [facility] on 12/15 to 01/17. She started drinking again on 01/19/17. She was trying to get into [facility] 01/25/17 but was told to come to the ED due to her blood alcohol level, otherwise they have a bed for her. Her last drink was around 5pm on 01/25/17, just prior to coming to the ED. Her withdrawal symptoms mainly consists of high blood pressure, anxiety, and shakiness. * She was admitted to general medicine for further management of alcohol detoxification * Monitor vitals closely every shift * Maintain oxygen saturation above 90% * Monitor for withdrawal symptoms * Monitor for hallucinations, anxiety, tremors, seizures, tachycardia * CIWA protocol * IV Ativan per ciwa * Ativan taper 1mg today and then stop ativan. * utility worker roller shop consult * Multivitamin * Thiamine * Folate * GI prophylaxis Prilosec 40 daily * Clonidine when necessary for hypertension * Follow-up psychiatric recommendations * Pt will go to [facility] at discharge * No indication for acute psychiatric hospitalization depression She was diagnosed with depression during the time that she was drinking heavily and was started on zoloft, which she is currently on. * She would like psych re-evaluation * psych on board * continue Zoloft as per psych * utility worker roller shop on board hip pain Patient usually takes Motrin at home for her pain We'll continue monitoring for now continue motrin for pain Diet: regular DVT ppx: mech and pharm FULL CODE Problem List: 1. Alcohol dependence 2. Alcohol withdrawal syndrome Pain Ratin Pain Location: hip pain Pain Goal: Remain pain free Pain Plan: motrin Tomorrow's Labs & Rationales: none
--- NOTE | 2017-01-30 08:31 | Discharge Summary ---
See Addendum Visit Information Visit Dates Admission Date: 01/26/17 Discharge Date: 01/30/2017 Hospital Course Course Attending Physician: KRISTI SCOTT MD Primary Care Physician: EMRE PALMER,JACKIE Sy Consulting Request: Consulting Specialty: Psychiatry Hospital Course: 46-year-old female with PMH of alcohol abuse with depression, alcohol withdrawal seizuire requiring ativan drip at [facility] in early 2016, presented to the hospital requesting alcohol detox because [facility] would not take her due to her high blood alcohol level. Vitals on admission-afebrile, heart rate 108, respiratory rate 18, blood pressure 148/102, saturating at 98 on room Pertinent labs on admission CBCs and BEP normal Serum alcohol 245 on admission. In the ED, she received a total of 4 mg of ativan, and CIWA score was up to 10. alcohol detoxification 46-year-old female with PMH of alcohol abuse with depression, alcohol withdrawal seizuire requiring ativan drip at [facility] in early 2016, presented to the hospital requesting alcohol detox. Serum alcohol 245 on admission. She was first admitted at [facility] in early 2016 with alcohol withdrawal seizure requiring iv Ativan drip. She was at [facility] on 12/15 to 01/17. She started drinking again on 01/19/17. She was trying to get into [facility] 01/25/17 but was told to come to the ED due to her blood alcohol level, otherwise they have a bed for her. Her last drink was around 5pm on 01/25/17, just prior to coming to the ED. Her withdrawal symptoms mainly consists of high blood pressure, anxiety, and shakiness. She was admitted to general medicine for further management of alcohol detoxification. We monitored her vitals closely every shift and maintained oxygen saturations above 90%. She was monitored for withdrawal symptoms, hallucinations, anxiety, tremors, seizures, tachycardia. She denies any withdrawal seizures in the hospital. She was maintained on CIWA protocol. She received Ativan for CIWA protocol. She completed Ativan taper during the hospital stay. She received banana bag. She was continued on multivitamin, thiamine and folate. Also received omeprazole for GI prophylaxis. she received clonidine as required for hypertension. depression She was diagnosed with depression during the time that she was drinking heavily and was started on zoloft, which she is currently on. She denied any suicidal thoughts. She denied any homicidal thoughts. Psychiatrist reevaluated her. We continued zoloft in the hospital. precast concrete ironworker was consulted. hip pain Patient usually takes Motrin at home for her pain. We continued Motrin for pain in the hospital. Diet: regular DVT ppx: mech and pharm FULL CODE Complications: none Allergies: Coded Allergies: aspirin (From [employer]) (Severe, RENAL FAILURE 01/25/17) pentazocine (From [employer]) (Severe, RENAL FAILURE 01/25/17) imipramine (Mild, HIVES 01/25/17) Penicillins (RASH 01/25/17) codeine (HIVES 01/25/17) Significant Procedures: none Pertinent Lab Results: none Disposition Summary Disposition Principal Diagnosis: Alcohol detoxification Additional Diagnosis: depression Discharge Disposition: other [facility] ( ) Discharge Instructions General Discharge Information Code Status: Full Code Patient's Diet: as Tolerated Patient's Activity: As tolerated Follow-Up Instructions/Appts: Follow-up with your primary care doctor in 1-2 weeks [facility] will be [facility] Medications at Discharge Discharge Medications: Continue taking these medications: Sertraline HCl (Sertraline HCl) 100 MG TABLET 1.5 Tablet ORAL DAILY Qty = 45 Calcium Carbonate/Vitamin D3 (Calcium 500 + D Tablet) (Unknown Strength) TABLET 1 Tablet ORAL DAILY Start taking the following new medications: Folic Acid (Folic Acid) 1 MG TABLET 1 Milligram ORAL DAILY Qty = 30 No Refills Multivitamin (One Daily Multivitamin) 1 EACH TABLET 1 Tablet ORAL DAILY Qty = 30 No Refills Thiamine HCl (Vitamin B-1) 100 MG TABLET 100 Milligram ORAL DAILY Qty = 30 No Refills Omeprazole (Omeprazole) 20 MG CAPSULE. 40 Milligram ORAL DAILY BEFORE BREAKFAST Qty = 30 No Refills Copies To: EMRE PALMER,JACKIE Sy
--- NOTE | 2017-01-30 11:58 | NUR ---
Case discussed at [facility]'s. Medical Team reports that patient is stable for discharge today, having received her last dose of ativan this am. Call placed to [facility]. Bed is available for today. Auto Suspension And Steering Mechanic will come to hospital at 1:00pm to transport patient. Patient in agreement with plan; MD and RN notified.
== END 2017-01-30 12:40 | DRG 897 ==
LOC: ERH 17:10 → 2NB 01-26 03:00 → ERHI 01-26 03:00 → ENRESERV 01-26 03:37 → 2NB 01-26 04:02 → ENPENDDIS 01-30 10:00 → 2NB 01-30 12:40
PROVIDERS: Emergency Medicine; ADMIT Student in an Organized Health Care Education/Training Program
DX: F10.239 Alcohol dependence with withdrawal, unspecified (principal); I10 Essential (primary) hypertension; Y90.8 Blood alcohol level of 240 mg/100 ml or more; Z81.1 Family history of alcohol abuse and dependence; F32.9 Major depressive disorder, single episode, unspecified; K21.9 Gastro-esophageal reflux disease without esophagitis
CPT/HCPCS: 2NBSP; 80307; 81025; 82436; 96374; 96375; G0480; J1650; J2405; J3490; J7060

== ENCOUNTER 2017-03-25 18:04 | Inpatient (IN) | payer OTHER ==
[~2017-03-25] VITALS: Ht 152.4 cm; Wt 52.6 kg
[~2017-03-25 18:04] MED LIST: CALCIUM 500 +1 EAC5 PO; FOLIC ACID1 M1 PO; OMEPRAZOLE20 M2 PO; ONE DAILY MULT1 EAC2 PO; SERTRALINE HCL100 MG PO; VITAMIN B-1100 MG PO
--- NOTE | 2017-03-25 18:21 | NUR ---
PT STATES THAT SHE NEEDS HELP TO STOP DRINKING AGAIN. PT WAS ADMITTED HERE OVER A MONTH AGO FOR 5 DAYS UPSTAIRS DUE TO HISTORY OF SEIZURES, LEFT HERE AND WAS IN [facility] FOR 45 DAYS DISCHARGED 03/15 AND STARTED TO DRINK AGAIN 03/18. LAST DRANK VODKA AROUND NOON, WHEN ASKED HOW MUCH SHE STATED "ALOT". DENIES SI OR HI.
[2017-03-25] MEDS ORDERED: ACAMPROSATE CA333 M1 PO (18:43)
--- NOTE | 2017-03-25 18:47 | NUR ---
SECUIRTY AT BEDSIDE FOR WANDING AT THIS TIME
--- NOTE | 2017-03-25 19:10 | NUR ---
FREDERIC BRIGGS AT BEDSIDE FOR PT EVAL
--- NOTE | 2017-03-25 19:14 | NUR ---
PT AMBULATED TO BATHROOM FOR URINE SAMPLE, STEADY GAIT NOTED.
[2017-03-25 19:23] VITALS: BP 161/88
--- NOTE | 2017-03-25 19:25 | ED PSYCHIATRIC COMPLAINT ---
History of Present Illness General Chief Complaint: ETOH/Drug Related Complaint Stated Complaint: ALCOHOL DETOX Source: patient, old records, friend Exam Limitations: no limitations Vital Signs & Intake/Output Vital Signs & Intake/Output Vital Signs Date Time Temp Pulse Resp B/P B/P Pulse O2 O2 Flow FiO2 Mean Ox Delivery Rate 03/26 718 97.2 93 18 118/84 97 03/26 0027 98.3 122 20 130/90 96 Room Air 03/25 2329 98.1 109 17 129/66 97 Room Air 03/25 2303 98.0 111 18 133/67 97 Room Air 03/25 2223 98.0 111 18 133/67 03/25 2023 96.8 123 18 150/99 03/25 2022 96.8 123 18 150/99 97 Room Air 03/25 1923 97.9 124 20 161/88 03/25 1817 97.9 124 20 161/88 95 Room Air ED Intake and Output 03/26 0000 03/25 1200 Intake Total 1000 Output Total Balance 1000 Intake, IV 1000 Patient 115 lb Weight Allergies Coded Allergies: aspirin (From [employer]) (Severe, RENAL FAILURE 01/25/17) pentazocine (From [employer]) (Severe, RENAL FAILURE 01/25/17) imipramine (Mild, HIVES 01/25/17) Penicillins (RASH 01/25/17) codeine (HIVES 01/25/17) Reconcile Medications Acamprosate Calcium 333 MG TABLET. 2 TAB PO TID SUBSTANCE ABUSE (Reported) Calcium Carbonate/Vitamin D3 (Calcium 500 + D Tablet) (Unknown Strength) TABLET 1 TAB PO DAILY SUPPLEMENT (Reported) Folic Acid 1 MG TABLET 1 MG PO DAILY supplement Multivitamin (One Daily Multivitamin) 1 EACH TABLET 1 TAB PO DAILY supplement Omeprazole 20 MG CAPSULE. 40 MG PO DAILY AC heart burn Sertraline HCl 100 MG TABLET 1.5 TAB PO DAILY MENTAL HEALTH (Reported) Thiamine HCl (Vitamin B-1) 100 MG TABLET 100 MG PO DAILY supplement Triage Note: PT STATES THAT SHE NEEDS HELP TO STOP DRINKING AGAIN. PT WAS ADMITTED HERE OVER A MONTH AGO FOR 5 DAYS UPSTAIRS DUE TO HISTORY OF SEIZURES, LEFT HERE AND WAS IN [facility] FOR 45 DAYS DISCHARGED 03/15 AND STARTED TO DRINK AGAIN 03/18. LAST DRANK VODKA AROUND NOON, WHEN ASKED HOW MUCH SHE STATED "ALOT". DENIES SI OR HI. Triage Nurses Notes Reviewed? yes Onset: Gradual Duration: week(s): Timing: recent history Severity: moderate : No Patient currently breastfeeds: No HPI: 47-year-old female presents to emergency department requesting alcohol detox. Patient states that she drinks 2 bottles of vodka (750ml) per day, last drink was around noon today. She has tried detoxing on her own and failed at home. She has a history of a seizure with alcohol withdrawal. She is currently complaining of a headache, slight shakiness. Yesterday she vomited 3 times, bilious, nonbloody. She tried to report to [email or web address] for rehabilitation and they told her she must go through detox first as she was having a hard time with withdrawals. She was admitted in December for 5 days for alcohol detox. She denies SI, HI, AH/VH, abdominal pain, nausea, diarrhea, constipation, fevers, chills, ilicit drug use. (JEFF BRIGGS PA-C) Past History Travel History Traveled to [place] past 21 day No Medical History Any Pertinent Medical History? see below for history Neurological: NONE EENT: NONE Cardiovascular: hypertension associated with alcohol withdrawal Respiratory: NONE Gastrointestinal: NONE Hepatic: NONE Renal: NONE Musculoskeletal: NONE Psychiatric: alcohol dependence, depression Endocrine: NONE Blood Disorders: NONE Cancer(s): NONE Other Medical Hx: ETOH ABUSE History of MRSA: No History of VRE: No History of CDIFF: No Surgical History Surgical History: knee repair Psychosocial History Who do you live with Spouse Services at Home None What is your primary language Sudanese Tobacco Use: Never used ETOH Use: alcoholic Illicit Drug Use: denies illicit drug use Family History Family History, If Any: MOTHER Alcohol abuse FATHER Alcohol abuse sibling Alcohol abuse grandparents Alcohol abuse Hx Contributory? No (JEFF BRIGGS PA-C) Review of Systems Review of Systems Constitutional: Reports: no symptoms. EENTM: Reports: no symptoms. Respiratory: Reports: no symptoms. Cardiovascular: Reports: no symptoms. GI: Reports: see HPI. Genitourinary: Reports: no symptoms. Musculoskeletal: Reports: no symptoms. Skin: Reports: no symptoms. Neurological/Psychological: Reports: see HPI. Hematologic/Endocrine: Reports: no symptoms. Immunologic/Allergic: Reports: no symptoms. All Other Systems: Reviewed and Negative (BRIGITTE PA-C,JEFF BAINS) Physical Exam Physical Exam General Appearance: well developed/nourished, alert, awake, intoxicated Head: atraumatic, normal appearance Eyes: Bilateral: normal appearance, PERRL, EOMI. Ears, Nose, Throat: normal pharynx, hearing grossly normal Neck: normal inspection, supple, full range of motion Respiratory: normal breath sounds, no respiratory distress, lungs clear Cardiovascular: tachycardia Gastrointestinal: normal bowel sounds, soft, non-tender Extremities: normal range of motion Neurological/Psychiatric: no motor/sensory deficits, awake, alert, housing relocation II-XII nml as tested, bilateral tremor of upper extremities Appearance/Memory/Insight: appropriate insight Behavoir/Eye Contact/Speech: cooperative, normal speech, good eye contact Thoughts/Hallucinations: normal thought pattern, no apparent hallucination Skin: intact, normal color, warm/dry SAD PERSONS Done? patient not suicidal (BRIGITTE RAMIREZ,JEFF BAINS) Progress Differential Diagnosis: drug intoxication, drug overdose, drug withdrawal, electrolyte abnormality, hypoglycemia Plan of Care: Orders Procedure Date/time Status Regular Diet 03/26 B Active PHOSPHORUS 03/26 0600 Complete MAGNESIUM 03/26 0600 Complete BASIC ELECTROLYTES PLUS BUN&CR 03/26 0600 Complete Vital Signs 03/26 0033 Active Teach/Educate 03/26 0033 Active Pain Treatment and Response 03/26 0033 Active Nutritional Intake, Monitor 03/26 0033 Active Isolation 03/26 0033 Active Intake & Output 03/26 0033 Active Patient Care Conference 03/26 0033 Active Activity/Ambulation 03/26 0033 Active MISSING MEDICATION FORM 03/26 UNK Active VITAL CAPACITY MONITORING 03/25 2259 Active ED Holding Orders 03/25 2259 Active Admit to inpatient 03/25 2259 Active Pathway - chart 03/25 2240 Active Pathway - chart 03/25 222 Active House Staff 03/25 222 Active SOCIAL WORK CONSULT 03/25 222 Active Code Status 03/25 222 Active Patient Data 03/25 2213 Active EKG 03/25 2012 Active PHOSPHORUS 03/25 193 Complete MAGNESIUM 03/25 1930 Complete CIWA 03/25 1921 Complete URINE 03/25 1921 Complete URINE DRUG SCREEN FOR ER ONLY 03/25 1921 Complete ETHANOL 03/25 1921 Complete COMPREHENSIVE METABOLIC PANEL 03/25 1921 Complete CBC WITHOUT DIFFERENTIAL 03/25 1921 Complete Lab Add-on Test 03/25 UNK Active VTE Mechanical Prophylaxis 03/25 UNK Active Vital Signs 03/25 UNK Active Seizure Precautions 03/25 UNK Active Intake & Output 03/25 UNK Active CIWA 03/25 UNK Active Current Medications Sig/Sarah Start time Last Medication Dose Stop Time Status Admin Thiamine HCl 100 MG DAILY 03/27 1000 AC (Vitamin B1) Enoxaparin Sodium 40 MG DAILY 03/26 1000 AC 03/26 (Lovenox) 0858 Folic Acid 1 MG DAILY 03/26 1000 AC 03/26 (Folic Acid) 0859 Multivitamins 1 TAB DAILY 03/26 1000 AC 03/26 (Theragran Vitamins) 0859 Sertraline HCl 150 MG DAILY 03/26 1000 AC 03/26 (Zoloft) 0858 Omeprazole 40 MG DAILY AC 03/26 0700 AC 03/26 (Prilosec) 0539 Clonidine 0.1 MG Q6 PRN 03/26 0530 AC (Catapres) Ondansetron HCl 4 MG Q6P PRN 03/26 0530 AC (Zofran) Morphine Sulfate 1 MG Q6-PRN PRN 03/26 0015 AC (Morphine) Acetaminophen 1,000 MG Q6 03/25 2359 AC 03/26 (Ofirmev) 0515 Lorazepam 2 MG Q6 03/25 2359 CAN (Ativan) Chlordiazepoxide HCl 25 MG TID 03/25 2347 AC 03/26 (Librium) 0859 Lorazepam 0.5 MG Q1 NEEDED PRN 03/25 2345 AC (Ativan) Lorazepam 0 Q1P PRN 03/25 2315 AC 03/26 (Ativan) 0540 Acetaminophen 650 MG Q6P PRN 03/25 2245 AC (Tylenol) Laboratory Tests 03/26/17 0657: Anion Gap 9, Estimated GFR > 60, BUN/Creatinine Ratio 30.0 H, Phosphorus 3.9, Magnesium 1.4 L 03/25/17 1930: Anion Gap 14, Estimated GFR > 60, BUN/Creatinine Ratio 27.1 H, Glucose 98, Calcium 8.8, Phosphorus 3.8, Magnesium 1.3 L, Total Bilirubin 0.4, AST 40 H, ALT 40, Alkaline Phosphatase 175 H, Total Protein 7.0, Albumin 4.6, Globulin 2.4, Albumin/Globulin Ratio 1.9, CBC w Diff NO MAN DIFF REQ, RBC 4.95, MCV 83.2, MCH 27.9, RDW 13.9, MPV 6.5 L, Gran % 58.4, Lymphocytes % 32.2, Monocytes % 6.3 , Eosinophils % 2.7, Basophils % 0.4, Absolute Granulocytes 4.8, Absolute Lymphocytes 2.7, Absolute Monocytes 0.5, Absolute Eosinophils 0.2, Absolute Basophils 0, PUBS MCHC 33.6, Serum Alcohol 234.0 03/25/171914: Urine Opiates Screen < 100.00, Methadone Screen < 40, Barbiturate Screen < 60, Ur Phencyclidine Scrn < 6.00, Amphetamines Screen < 100, U Benzodiazepines Scrn < 85, Urine Cocaine Screen < 50, Urine Cannabis Screen < 5.00 03/25/171914: Methadone Screen Cancelled, Barbiturate Screen Cancelled, Ur Phencyclidine Scrn Cancelled, Amphetamines Screen Cancelled, U Benzodiazepines Scrn Cancelled, Urine Cocaine Screen Cancelled, Urine Cannabis Screen Cancelled, Urine Test NEGATIVE The patient was discussed with Dr. Jeong. If patient is clinically sober and CIWA <8 she will be cleared for ETOH rehab at [facility]. CIWA score 16, ETOH 234, PT with tremors, given Ativan 2mg IV The patient was discussed with Dr. Webb - will require admission given her clinical presentation and history of withdrawal seizures. 9:07 PM - Spoke with Dr. Martinez, patient will be admitted to general medicine for alcohol detox, patient has significant hx of seizure, elevated CIWA score of 16, requiring repeat CIWA, IV medication, fluids, monitoring, premature discharge would be medically unsafe. (BRIGITTE RAMIREZ,JEFF BAINS) Initial ED EKG: sinus tachycardia @112bpm, no ST segment depresssion or elevation (BRIGTITE RAMIREZ,JEFF BAINS) Departure Departure Time of Disposition: 2109 Disposition: STILL A PATIENT Condition: Stable Clinical Impression Primary Impression: Alcoholism /alcohol abuse Secondary Impressions: Alcohol withdrawal Referrals: EMRE PALMER,JACKIE Sy (PCP/Family) Departure Forms: Customer Survey General Discharge Information Admission Note Spoke With: MAXIMUS MARTINEZ MD Documentation of Exam: Documentation of any treatments & extenuating circumstances including Concerns Regarding Discharge (functional status, medication knowledge or non-compliance, living conditions, etc.) that warrant an admission rather than observation: [ Patient requiring alcohol detox, CIWA score of 16, history of withdrawal seizure , requiring persistent monitoring, repeat labs, IV fluids, IV medication, premature discharge would be medically unsafe] (BRIGITTE RAMIREZ,JEFF BAINS) PA/STITCH BONDING MACHINE DRAWER IN Co-Sign Statement Statement: ED Attending supervision documentation- [] I saw and evaluated the patient. I have also reviewed all the pertinent lab results and diagnostic results. I agree with the findings and the plan of care as documented in the PA's/STITCH BONDING MACHINE DRAWER IN's documentation. [X] I have reviewed the ED Record and agree with the PA's/STITCH BONDING MACHINE DRAWER IN's documentation. [] Additions or exceptions (if any) to the PAs/STITCH BONDING MACHINE DRAWER IN's note and plan are summarized below: [] (HIPOLITO PALMER,ANTOLIN)
--- NOTE | 2017-03-25 19:35 | NUR ---
IV EST #22 IN LAC. BLOOD OBTAINED AND SENT TO LAB -SST,LAV
--- NOTE | 2017-03-25 19:38 | NUR ---
PT MEDICATED WITH NS INFUSING PER EMAR
[2017-03-25 19:41] LABS: ABSOLUTE BASOPHIL COUNT 0 /CUMM (0.0-0.2); ABSOLUTE EOSINOPHIL COUNT 0.2 /CUMM (0.0-0.7); ABSOLUTE GRANULOCYTE CT 4.8 /CUMM (1.4-6.5); ABSOLUTE LYMPH COUNT 2.7 /CUMM (1.2-3.4); ABSOLUTE MONOCYTE COUNT 0.5 /CUMM (0.10-0.60); BASOPHIL % 0.4 % (0.0-2.0); EOSINOPHIL % 2.7 % (0-5); GRANULOCYTE % 58.4 % (42.2-75.2); HEMATOCRIT 41.2 % (37-47); MEAN CORPUSCULAR HGB 27.9 PG (27.0-31.0); MEAN CORPUSCULAR HGB CONC 33.6 G/DL (33.0-37.0); MEAN CORPUSCULAR VOLUME 83.2 FL (81.0-99.0); MEAN PLATELET VOLUME 6.5 FL (7.4-10.4); PLATELET COUNT 320 /CUMM (130-400); RBC DISTRIBUTION WIDTH 13.9 % (11.5-14.5); RED BLOOD CELL CT 4.95 /CUMM (4.20-5.40); WHITE BLOOD CELL COUNT 8.2 /CUMM (4.8-10.8)
--- NOTE | 2017-03-25 20:13 | NUR ---
PT CONTINUES TO C/O INCREASING "WITHDRAWAL SYMPTOMS". FREDERIC BRIGGS AWARE OF PT COMPLAINTS AND CIWA SCORE. PER FREDERIC BRIGGS WE ARE TO RECHECK CIWA PER PROTOCOL AND WILL WAIT TO MEDICATE
--- NOTE | 2017-03-25 20:18 | NUR ---
PT MEDICATED WITH 2MG ATIVAN PER EMAR FOR CIWA SCORE 16
[2017-03-25 20:23] VITALS: BP 150/99
--- NOTE | 2017-03-25 20:31 | NUR ---
PT REQUESTING FOOD, PROVIDED WITH BOXED LUNCH. FREDERIC BRIGGS MADE AWARE.
--- NOTE | 2017-03-25 21:17 | NUR ---
FREDERIC BRIGGS AT BEDSIDE FOR DISCUSSION ON PT POC
--- NOTE | 2017-03-25 21:26 | NUR ---
PT REMAINS CALM AND COOPERATIVE AT THIS TIME. APPEARS LESS TREMULOUS AND MORE RELAXED. PT DENIES ANY COMPLAINTS AT THIS TIME. RR NOTED, WITH NAD.
--- NOTE | 2017-03-25 21:54 | History & Physical ---
JOSIAH PALMER,KAROL 03/25/17 2153: General Information and HPI MD Statement: I have seen and personally examined JACKIE HENSON and documented this H&P. The patient is a 47 year old F who presented with a patient stated chief complaint of [alcohol detox]. Source of Information: patient, old records Exam Limitations: no limitations History of Present Illness: pt is a 47 yo female presenting for alcohol detoxification. She has a [facility] signficant for alcohol dependence, seizure 2/2 alcohol withdrawl, paroxysmal atrial tachycardia, and L ACL inury (surgically repaired 1.5 years ago). The pt attepted to go to rehab at [facility], but was denied due to alcohol intoxication. Her last drink was today at around noon, and she drinks 2 bottles of vodka per day. She was discharged from [facility] on 03/15 and began drinking immediately. She c/o nausea, 2-3 episodes of bilious nonbloody vomiting, tremors, diaphoresis, back pain and palpitations. She denies chest pain, SOB, fever, chills, suicidal or homocidal ideations, and visual or auditory hallucinations. She states that these are her typical sympotoms when going through alcohol withdrawl. She has was treated for alcohol withdrawl and seizure at [facility] in early 2016 and required an ativan drip, and was treated again for alcohol withdrawl at in December 2016. Allergies/Medications Allergies: Coded Allergies: aspirin (From [employer]) (Severe, RENAL FAILURE 01/25/17) pentazocine (From [employer]) (Severe, RENAL FAILURE 01/25/17) imipramine (Mild, HIVES 01/25/17) Penicillins (RASH 01/25/17) codeine (HIVES 01/25/17) Home Med list Acamprosate Calcium 333 MG TABLET.DR 2 TAB PO TID SUBSTANCE ABUSE (Reported) Calcium Carbonate/Vitamin D3 (Calcium 500 + D Tablet) (Unknown Strength) TABLET 1 TAB PO DAILY SUPPLEMENT (Reported) Folic Acid 1 MG TABLET 1 MG PO DAILY supplement Multivitamin (One Daily Multivitamin) 1 EACH TABLET 1 TAB PO DAILY supplement Omeprazole 20 MG CAPSULE.DR 40 MG PO DAILY AC heart burn Sertraline HCl 100 MG TABLET 1.5 TAB PO DAILY MENTAL HEALTH (Reported) Thiamine HCl (Vitamin B-1) 100 MG TABLET 100 MG PO DAILY supplement Past History Travel History Traveled to [place] past 21 day No Medical History Neurological: NONE EENT: NONE Cardiovascular: hypertension associated with alcohol withdrawal Respiratory: NONE Gastrointestinal: NONE Hepatic: NONE Renal: NONE Musculoskeletal: NONE Psychiatric: alcohol dependence, depression Endocrine: NONE Blood Disorders: NONE Cancer(s): NONE Other Medical Hx: ETOH ABUSE History of MRSA: No History of VRE: No History of CDIFF: No Surgical History Surgical History: knee repair Past Family/Social History Family History Relations & Conditions if any MOTHER Alcohol abuse FATHER Alcohol abuse sibling Alcohol abuse grandparents Alcohol abuse Relation not specified for: FH: hypertension Psychosocial History Who Do You Live With? spouse, child Services at Home: None Primary Language: Luxembourgish ETOH Use: alcoholic Illicit Drug Use: denies illicit drug use Functional Ability ADLs Independent: dressing, eating, toileting, bathing. Ambulation: independent IADLs Independent: shopping, housework, finances, food prep, telephone, transportation , medication admin. Review of Systems Review of Systems Constitutional: Reports: diaphoresis, malaise. Denies: chills, fever. EENTM: Denies: blurred vision, visual changes, eye pain. Cardiovascular: Reports: palpitations. Denies: chest pain, edema, syncope. Respiratory: Denies: cough, short of breath. GI: Denies: abdominal pain, diarrhea, melena, bloody stool. Musculoskeletal: Reports: back pain. Skin: Denies: lesions. Neurological/Psychological: Reports: anxiety, confusion, tremors. Exam & Diagnostic Data Last 24 Hrs of Vital Signs/I&O Vital Signs Date Time Temp Pulse Resp B/P B/P Pulse O2 O2 Flow FiO2 Mean Ox Delivery Rate 03/26 0027 98.3 122 20 130/90 96 Room Air 03/25 2329 98.1 109 17 129/66 97 Room Air 03/25 2303 98.0 111 18 133/67 97 Room Air 03/25 2223 98.0 111 18 133/67 03/25 2023 96.8 123 18 150/99 03/25 2022 96.8 123 18 150/99 97 Room Air 03/25 1923 97.9 124 20 161/88 03/25 1817 97.9 124 20 161/88 95 Room Air Intake & Output 03/26 0800 03/26 0000 03/25 1600 Intake Total 1000 Output Total Balance 1000 Intake, IV 1000 Patient 117 lb 115 lb Weight Weight Reported by Patient Measurement Method Physical Exam General Appearance Alert, Oriented X3, Cooperative, No Acute Distress Skin No Rashes, No Breakdown, No Significant Lesion Skin Temp/Moisture Exam: Warm/Dry Sepsis Skin Exam (color): Normal for Ethnicity HEENT Atraumatic, PERRLA, EOMI, mucous membranes are dry Neck Supple, No JVD, No LAD Cardiovascular Normal S1, Normal S2, No Murmurs, tachycardic Lungs Clear to Auscultation, Normal Air Movement Abdomen Normal Bowel Sounds, Soft, No Tenderness, No Hepatospenomegaly, No Masses Neurological Normal Speech, Strength at 5/5 X4 Ext, Sensation Intact, Cranial Nerves 3-12 NL Extremities No Clubbing, No Cyanosis, No Edema, Normal Pulses, No Tenderness/ Swelling Vascular Normal Pulses, Pulses Symmetrical Sepsis Peripheral Pulse Location: Dorsalis Pedis Sepsis Peripheral Pulse Exam: Normal Sepsis Cap Refill Exam: <2 Sec Last 24 Hrs of Labs/Myles: Laboratory Tests 03/25/17 1930: Anion Gap 14, Estimated GFR > 60, BUN/Creatinine Ratio 27.1 H, Glucose 98, Calcium 8.8, Phosphorus 3.8, Magnesium 1.3 L, Total Bilirubin 0.4, AST 40 H, ALT 40, Alkaline Phosphatase 175 H, Total Protein 7.0, Albumin 4.6, Globulin 2.4, Albumin/Globulin Ratio 1.9, CBC w Diff NO MAN DIFF REQ, RBC 4.95, MCV 83.2, MCH 27.9, RDW 13.9, MPV 6.5 L, Gran % 58.4, Lymphocytes % 32.2, Monocytes % 6.3 , Eosinophils % 2.7, Basophils % 0.4, Absolute Granulocytes 4.8, Absolute Lymphocytes 2.7, Absolute Monocytes 0.5, Absolute Eosinophils 0.2, Absolute Basophils 0, PUBS MCHC 33.6, Serum Alcohol 234.0 03/25/171914: Urine Test NEGATIVE Diagnostic Data Other Results [facility] 16 --> 06 --> 13 Assessment/Plan Assessment: pt is a 47 yo female presenting for alcohol detoxification. She has a h signficant for alcohol dependence, seizure 2/2 alcohol withdrawl, paroxysmal atrial tachycardia, and L ACL inury (surgically repaired 1.5 years ago). #alcohol detox pt has recent hx of seizure and need for ativan drips, will treat aggressively in an attempt to avoid the need for an ativan drip on this admission - admit to gen med - chlordiazepoxide 25 mg TID, consider taper schedule of 25 mg BID after 24 hours, 10 mg TID after 48 hrs - IV ativan per [facility] protocol - Seizure precaution, IV Ativan 0.5 mg for seizure - IV banana bag - Thaimine 200 mg PO today, 100 mg daily moving forward - Follic acid PO 1 mg daily - multivitamin PO 1 tab daily - f/u mag and phos in AM - SW consult in AM - regular diet # DVT prophylaxis - Lovenox SQ #Code status -Full Code As Ranked By This Provider Problem List: 1. Alcoholism /alcohol abuse 2. Alcohol withdrawal syndrome Core Measures/Miscellaneous Acute Coronary Syndrome ACS Diagnosis: No Cerebrovascular Accident CVA/TIA Diagnosis: No Congestive Heart Failure CHF Diagnosis: No VTE (View Protocol) VTE Risk Factors: Age > 40 [facility] d/t: No contraindications No VTE Pharm Prophylaxis d/t: No contraindications VTE Diagnosis: No VTE Type: NONE VTE Confirmed by (Test): NONE Sepsis (View Protocol) Severe Sepsis Present: No Septic Shock Septic Shock Present: No Miscellaneous Documentation Attending Case Discussed With: MAXIMUS ESCOBAR MD Primary Care Physician: JACKIE ANDREA MD Patient sees these Specialists NA Level of Patient Care: General Medicine SUSHMA JUARES MD 03/26/17 0024: Resident Review Statement Resident Statement: examined this patient, discussed with manager internet, agreed with manager internet, reviewed EMR data (avail), discussed with nursing Other Findings: 47-year-old female with past medical history of alcohol dependence, alcohol withdrawal seizures, multiple episodes for detoxification, including ICU admissions for IV Ativan drip at [address] [place] [address] and later at [facility], and a recent discharge from [facility] rehabilitation facility for alcohol detoxification, presented to the ED requesting alcohol detoxification. She was discharged from [facility] on 03/15, but started drinking right after that, 2 bottles of vodka per day, the last one being yesterday. She complains of nausea , 2 episodes of bilious nonbloody vomiting, anxiety, tremors, shaking, palpitations but denies chest pain, shortness of breath, FEVER, suicidal or homicidal ideations. She mentions of visual hallucination-like episode while in the ED ("projections of the stuffs happening in the ED in her dreams, not sure if this is hallucination or not"). Denies any auditory hallucinations. On presentation, she was tachycardic to 124, blood pressure 161/88, temperature 97.9, respiration 20, pulse ox 95% on room air and CIWA score was 16. The blood pressure lowered to 129/66, pulse 109, and CIWA dropped to 6 later with IV Lorazepam. LABS: Serum alcohol 234, rest of the U tox negative; CBC shows WBC 8.2, H&H 13.8/41.2, 320, MCV 83.2; chemistry: Sodium 141, potassium 4.3, BUN 19, creatinine 0.7, glucose 98, LOW magnesium 1.3, phosphorus 3.8. LFTs shows slightly increased alkaline phosphatase at 175, AST 40, AST 40, total bilirubin 0.4, albumin 4.6. Urine Negative. EKG shows sinus tachycardia at 112, FL 112, QRS 80, Qtc 453, no ST-T changes. The patient is currently being admitted in the general medical floor for management of following issues: # Alcohol withdrawal Patient has long-standing history of alcohol dependence with multiple detoxification episodes, more seriously history of alcohol withdrawal seizures, and a high CIWA score currently requiring admission. On clinical judgment, she can be managed in the general medical floor, and probably will not require IV Ativan drip. * Will minus output withdrawal according to CIWA protocol * Given her history of alcohol withdrawal seizures, this time we will manage her with chlordiazepoxide which is a long-acting medication, 25 mg 3 times a day. Tapering should be done by 20-25% per day depending on daily CIWA scores * IV Ativan according to CIWA protocol * Seizure precaution, and Inj IV Ativan 0.5 mg to be given STAT for seizure * IV banana bag 1 ordered * Thiamine 200 mg orally now and 100 mg daily from then onward * Folic acid 1 mg oral daily * Multivitamin tab 1 tab oral daily * Zofran for nausea/vomitting PRN (QTc<500) * Clinidine for high BP (can happen during withdrawal, despite the standard detox protocol) * We'll replete magnesium, phosphorus is normal. A repeat check 1 more time in the morning * Social work consult in the morning * Patient will not require psychiatric consultation has she is not suicidal and does not have active/acute psychiatric condition crisis currently * Symptomatic management for rest of the complaints, like Zofran 4 nausea, had good pain management #Continue home med of Sertraline and supplemets (as mentioned above) #Pain pathway: PO Tylenol, IV Ofirmev, IV Morphine for mild/mod/severe pain #Diet: Regular diet #DVT ppx: SQ Lovenox #Code status: Full code MAXIMUS ESCOBAR 03/26/17 0203: Attending MD Review Statement Attending Statement Attending MD Statement: examined this patient, discuss w/resident/PA/CERTIFIED PHARMACY TECHNICIAN, agreed w/resident/PA/CERTIFIED PHARMACY TECHNICIAN, reviewed EMR data (avail), reviewed images, amended to note Attending Assessment/Plan: CC: Alcohol Detox PMH: alcohol dependence, withdrawal seizure, PAT (paroxysmal atrial tachycardia) , depression, She came for [facility] for detox. Her last detox was in December here, followed by complete alcohol rehab at [facility], relapsed again last week. She has one episode of Sz when she was admitted in [facility]. She drinks 2 bottles of vodka a daily last drink was prior to ER arrival. She had nausea and bilious vomiting. Denies heartburn, melena or hematemesis, CP, Fever, LOC, hallucinations, suicidal or homicidal ideation. Her previous detox was complicated by ICU admissions with Ativan drip. Vitals: Afebrile, tachycardic with also 124, RR 20, blood pressure 161/88 on arrival improved to 133/67, saturating well on room air. On exam: A O 3, cooperative, no acute distress, profusely sweating, neck supple , JVD normal, no lymphadenopathy, mucosa moist, no focal neurological deficit, no dependent edema, no obvious skin rashes or inflammation CVS: S1-S2, RRR. RS: Clear to auscultate bilaterally. Abdomen: Soft, NT, ND, bowel sounds present. Labs: CBC, BMP unremarkable, AST 40, ALT 40, alkaline phosphatase 175, bilirubin 0.4 test negative, alcohol 234, U tox unremarkable A and P # Alcohol withdrawal with history of alcohol related seizures. - Admit to general med - seizure precautions, - CIWA protocol: IV ativan per CIWA, - PO Librium 25 mg 3 times a day tomorrow then quick taper - banana bag, - At magnesia and phosphate sample and lab, repeat phosphate tomorrow - By mouth thiamine, folic acid - Social work consult - transition to [facility] for inpatient rehab, - continue Zoloft, Zofran and Protonix , Clonidine PRN for hypertension. - DVT prophylaxis - Adequate pain control
--- NOTE | 2017-03-25 22:05 | NUR ---
PT AMBULATED TO BATHROOM, STEADY GAIT NOTED
[2017-03-25 22:23] VITALS: BP 133/67
--- NOTE | 2017-03-25 23:11 | NUR ---
PHARMACY CALLED FOR BANANA BAG, TOLD IT WOULD BE 10-15 MINUTES
--- NOTE | 2017-03-25 23:16 | NUR ---
PT MEDICATED WITH 2MG ATIVAN FOR CIWA SCORE 16 PER EMAR
--- NOTE | 2017-03-25 23:20 | NUR ---
PT GOING TO ROOM 207-1
--- NOTE | 2017-03-25 23:47 | NUR ---
SECOND ATTEMPT TO CALL REPORT, TOLD THEY WOULD CALL BACK. PT SOUNDLY ASLEEP AT THIS TIME W/RR NOTED. EQUAL AND BILATERAL CHEST RISE AND FALL. NAD.
--- NOTE | 2017-03-25 23:55 | NUR ---
REPORT GIVEN TO ERIK WU
[2017-03-26 00:27] VITALS: BP 130/90
--- NOTE | 2017-03-26 00:30 | NUR ---
PT ARRIVED FROM ER VIA STRETCHER. AMBULATED TO BED WITHOUT DIFFICULTY. PT'S BELONGINGS PLACED IN CLOSET. PT ORIENTED TO ROOM AND CALL SYSTEM. IVF STARTED PER ORDERS. WILL MONITOR.
--- NOTE | 2017-03-26 02:04 | Admission Certification ---
Admission Certification Certification Statement - As attending physician, I certify that at the time of - admission, based on clinical presentation, severity of - symptoms, need for further diagnostic testing and - therapeutic interventions, and risk of adverse outcomes - without in-hospital treatment, in my clinical assessment, - this patient requires an acute hospital stay for a minimum - of two nights or longer. I have also considered psychsocial - factors such as support system, advanced age, financial - issues, cognitive issues, and failed out-patient treatments, - past re-admission history, safety of patient, and lack of - compliance as applicable. Specific rationale supporting this admission is: Alcohol detox/ withdrawal with a history of alcohol related seizures
--- NOTE | 2017-03-26 07:17 | PN- Housestaff ---
Subjective Follow-up For: Alcohol detox Hypomagnesium Subjective: I saw and examined the patient today. Pt states she relapsed last week. States she has discussed it in detail with her , friends and AA members and believes it is triggered when she is left home alone. Plans on having an adult around at all times for the forseeable future after she is discharged. Pt states she has slight tremors, denies visual/auditory hallucinations, chest pain/palpitations, SOB, n/v/d/c, fever/chills. Pt denies SI/HI. Pt states she was drinking 2 bottles of vodka daily over the past week. Review of Systems Constitutional: Denies: see HPI. Cardiovascular: Denies: see HPI. Respiratory: Denies: see HPI. Gastrointestinal: Denies: see HPI. Genitourinary: Denies: see HPI. Musculoskeletal: Denies: no symptoms. Neurological/Psychological: Reports: tremors. Objective Last 24 Hrs of Vital Signs/I&O Vital Signs Date Time Temp Pulse Resp B/P B/P Pulse O2 O2 Flow FiO2 Mean Ox Delivery Rate 03/26 718 97.2 93 18 118/84 97 03/26 0027 98.3 122 20 130/90 96 Room Air 03/25 2329 98.1 109 17 129/66 97 Room Air 03/25 2303 98.0 111 18 133/67 97 Room Air 03/25 2223 98.0 111 18 133/67 03/25 202 96.8 123 18 150/99 03/25 202 96.8 123 18 150/99 97 Room Air 03/25 1923 97.9 124 20 161/88 03/25 1817 97.9 124 20 16188 95 Room Air Intake & Output 03/26 1600 03/26 0800 03/26 0000 Intake Total 1025 1000 Output Total Balance 1025 1000 Intake, IV 625 1000 Intake, Oral 400 Patient 117 lb 115 lb Weight Weight Reported by Patient Measurement Method Physical Exam General Appearance: Alert, Oriented X3, Cooperative, No Acute Distress HEENT: Atraumatic, PERRLA, Mucous Membr. moist/pink Cardiovascular: Regular Rate, Normal S1, Normal S2 Lungs: Clear to Auscultation Abdomen: Normal Bowel Sounds, Soft, No Tenderness Extremities: Normal Pulses, No Tenderness/Swelling Assessment/Plan Assessment: Pt is a 47 y/o female with past medical history of alcohol dependence, alcohol withdrawal seizures, multiple episodes for detoxification, including ICU admissions for IV Ativan drip at [address] [place] [address] and later at [facility], and a recent discharge from [facility] for alcohol detoxification, history of paroxysmal atrial tachycardia presented to the ED requesting alcohol detoxification. Pt admitted to general medical floor for management of the followin. Alcohol withdrawal Patient has long-standing history of alcohol dependence with multiple detoxification episodes, more seriously history of alcohol withdrawal seizures, and a high CIWA score requiring admission. Pt has been drinking 2 bottles of vodka over past week. Last drink was at 1pm on 03/25/2017, a few hours prior to arriving at the ED. * Discontinue librium * Start pt on ativan 2mg q6h PO * IV Ativan according to CIWA protocol medium or high dose * Seizure precaution, and Inj IV Ativan 0.5 mg to be given STAT for seizure * IV banana bag 1 * Thiamine 200 mg PO x1, continue thiamine 100mg PO daily * Continue Folic acid 1 mg oral daily * Continue Multivitamin tab 1 tab oral daily * Zofran for nausea/vomitting PRN (QTc<500) * Clonidine for high BP (can happen during withdrawal, despite the standard detox protocol) 2. Hypomagnesemia: M.3 --> 1.4 today, Phos: normal at 3.9 * replete magnesium today * will recheck BEP tomorrow AM #Continue home med of Sertraline and supplemets (as mentioned above) #Pain pathway: PO Tylenol, IV Ofirmev, IV Morphine for mild/mod/severe pain #Diet: Regular diet #DVT ppx: SQ Lovenox #Code status: Full code Problem List: 1. Alcohol withdrawal syndrome 2. Alcoholism /alcohol abuse 3. Alcohol dependence Pain Ratin Pain Location: n/a Pain Goal: Remain pain free Pain Plan: pain pathway Tomorrow's Labs & Rationales: bep
[2017-03-26 07:18] VITALS: BP 118/84
[2017-03-26 12:00] VITALS: BP 120/82
--- NOTE | 2017-03-26 13:42 | PN- Att Addend ---
Attending Addendum Attending Brief Note Patient seen and examined. Plan of care discussed with the medical team and the patient. Available lab work and radiology test reports were reviewed. Patient is a tremulous but denies any hallucinations. She reports some sweating but no fever or chills. Denies any nausea vomiting or abdominal pain or diarrhea. She is currently awake alert and oriented. Assessment * Alcohol abuse * Alcohol intoxication * Alcohol withdrawal with moderate symptoms * Hypomagnesemia * Hyponatremia mild * History of paroxysmal atrial tachycardia Plan * Discontinue Librium and start Ativan 2 mg by mouth oral every 6 around-the- clock. In addition start Ativan based on medium or high dose protocol; adjust Ativan if patient is excessively drowsy. * Replace magnesium * Continue other medications Exam: General: Patient awake alert oriented with tremors but without any distress CVS: S1 plus S2 without any murmur or gallops Chest: Few scattered crepitation without any wheeze. There is no respiratory distress. Abdomen: Soft nontender, bowel sound present, no guarding or rebound PROOFSHEET CORRECTOR: Awake alert oriented without any focal neuro deficit and follows command appropriately; tremors are noted of both hands Extremities: No edema; no clubbing or cyanosis noted Laboratory Tests 03/26 03/25 03/25 0657 1930 1915 Chemistry Sodium (137 - 145 mmol/L) 136 L 141 Potassium (3.5 - 5.1 mmol/L) 3.7 4.3 Chloride (98 - 107 mmol/L) 98 100 Carbon Dioxide (22 - 30 mmol/L) 29 27 Anion Gap (5 - 16) 9 14 BUN (7 - 17 mg/dL) 18 H 19 H Creatinine (0.5 - 1.0 mg/dL) 0.6 0.7 Estimated GFR (>60 ml/min) > 60 > 60 BUN/Creatinine Ratio (7 - 25 %) 30.0 H 27.1 H Glucose (65 - 99 mg/dL) 98 Calcium (8.4 - 10.2 mg/dL) 8.8 Phosphorus (2.5 - 4.5 mg/dL) 3.9 3.8 Magnesium (1.6 - 2.3 mg/dL) 1.4 L 1.3 L Total Bilirubin (0.2 - 1.3 mg/dL) 0.4 AST (14 - 36 U/L) 40 H ALT (9 - 52 U/L) 40 Alkaline Phosphatase (<127 U/L) 175 H Total Protein (6.3 - 8.2 g/dL) 7.0 Albumin (3.5 - 5.0 g/dL) 4.6 Globulin (1.9 - 4.2 gm/dL) 2.4 Albumin/Globulin Ratio (1.1 - 2.2 %) 1.9 Hematology CBC w Diff NO MAN DIFF REQ WBC (4.8 - 10.8 /CUMM) 8.2 RBC (4.20 - 5.40 /CUMM) 4.95 Hgb (12.0 - 16.0 G/DL) 13.8 Hct (37 - 47 %) 41.2 MCV (81.0 - 99.0 FL) 83.2 MCH (27.0 - 31.0 PG) 27.9 RDW (11.5 - 14.5 %) 13.9 Plt Count (130 - 400 /CUMM) 320 MPV (7.4 - 10.4 FL) 6.5 L Gran % (42.2 - 75.2 %) 58.4 Lymphocytes % (20.5 - 51.1 %) 32.2 Monocytes % (1.7 - 9.3 %) 6.3 Eosinophils % (0 - 5 %) 2.7 Basophils % (0.0 - 2.0 %) 0.4 Absolute Granulocytes (1.4 - 6.5 /CUMM) 4.8 Absolute Lymphocytes (1.2 - 3.4 /CUMM) 2.7 Absolute Monocytes (0.10 - 0.60 /CUMM) 0.5 Absolute Eosinophils (0.0 - 0.7 /CUMM) 0.2 Absolute Basophils (0.0 - 0.2 /CUMM) 0 PUBS MCHC (33.0 - 37.0 G/DL) 33.6 Toxicology Urine Opiates Screen (>2000 NG/ML) < 100.00 Methadone Screen (>300 NG/ML) < 40 Barbiturate Screen (>200 NG/ML) < 60 Ur Phencyclidine Scrn (>25 NG/ML) < 6.00 Amphetamines Screen (>1000 NG/ML) < 100 U Benzodiazepines Scrn (>200 NG/ML) < 85 Urine Cocaine Screen (>300 NG/ML) < 50 Urine Cannabis Screen (>50 NG/ML) < 5.00 Serum Alcohol (<10 MG/DL) 234.0 03/25 1915 Toxicology Methadone Screen Cancelled Barbiturate Screen Cancelled Ur Phencyclidine Scrn Cancelled Amphetamines Screen Cancelled U Benzodiazepines Scrn Cancelled Urine Cocaine Screen Cancelled Urine Cannabis Screen Cancelled Urines Urine Test NEGATIVE Vital Signs Date Time Temp Pulse Resp B/P B/P Pulse O2 O2 Flow FiO2 Mean Ox Delivery Rate 03/26 1200 97.4 96 18 120/82 03/26 07 97.2 93 18 118/84 97 03/26 0027 98.3 122 20 130/90 96 Room Air 03/25 2329 98.1 109 17 129/66 97 Room Air 03/25 2303 98.0 111 18 133/67 97 Room Air 03/25 2223 98.0 111 18 133/67 03/25 2023 96.8 123 18 150/99 03/25 2022 96.8 123 18 150/99 97 Room Air 03/25 1923 97.9 124 20 161/88 03/25 1817 97.9 124 20 161/88 95 Room Air Intake & Output 03/26 1600 03/26 0800 03/26 0000 Intake Total 1025 1000 Output Total Balance 1025 1000 Intake, IV 625 1000 Intake, Oral 400 Patient 117 lb 115 lb Weight Weight Reported by Patient Measurement Method
[2017-03-26 14:28] VITALS: BP 146/97
[2017-03-26 22:19] VITALS: BP 136/108
[2017-03-27] VITALS: BP 130/98
[2017-03-27 06:36] VITALS: BP 140/96
--- NOTE | 2017-03-27 08:08 | PN- Housestaff ---
Subjective Follow-up For: Alcohol Withdrawal Alcohol Dependence Subjective: I saw and examined the patient today. Pt denies n/v, tremors, anxiety/agitation, sweating, headaches, hallucinations (auditory, visual, tactile). Pt states she is feeling much better than before. States she is discussing with her if she should go to [facility] or another facility. Review of Systems Constitutional: Denies: no symptoms. Cardiovascular: Denies: no symptoms. Respiratory: Denies: no symptoms. Gastrointestinal: Denies: no symptoms. Genitourinary: Denies: no symptoms. Musculoskeletal: Denies: no symptoms. Objective Last 24 Hrs of Vital Signs/I&O Vital Signs Date Time Temp Pulse Resp B/P B/P Pulse O2 O2 Flow FiO2 Mean Ox Delivery Rate 03/27 0636 97.9 95 20 140/96 97 Room Air 03/27 0000 130/98 03/26 2219 98.6 83 18 136/108 99 Intake & Output 03/27 1600 03/27 0800 03/27 0000 Intake Total 340 1025 Output Total Balance 340 1025 Intake, IV 100 225 Intake, Oral 240 800 Number 0 Bowel Movements Physical Exam General Appearance: Alert, Oriented X3, Cooperative, No Acute Distress HEENT: Atraumatic, Mucous Membr. moist/pink Cardiovascular: Regular Rate, Normal S1, Normal S2 Lungs: Clear to Auscultation Abdomen: Normal Bowel Sounds, Soft, No Tenderness Extremities: Normal Pulses Assessment/Plan Assessment: Pt is a 47 y/o female with past medical history of alcohol dependence, alcohol withdrawal seizures, multiple episodes for detoxification, including ICU admissions for IV Ativan drip at [address] [place] [address] and later at [facility], and a recent discharge from [facility] for alcohol detoxification, history of paroxysmal atrial tachycardia presented to the ED requesting alcohol detoxification. Pt admitted to general medical floor for management of the followin. Alcohol withdrawal Patient has long-standing history of alcohol dependence with multiple detoxification episodes, more seriously history of alcohol withdrawal seizures, and a high CIWA score requiring admission. Pt has been drinking 2 bottles of vodka over past week. Last drink was at 1pm on 03/25/2017, a few hours prior to arriving at the ED. * Discontinue librium * Decreased ativan to 1.5mg PO q6h * IV Ativan according to CIWA protocol medium or high dose * IV banana bag 1 * Thiamine 200 mg PO x1, continue thiamine 100mg PO daily * Continue Folic acid 1 mg oral daily * Continue Multivitamin tab 1 tab oral daily * Zofran for nausea/vomitting PRN (QTc<500) * Clonidine for high BP (can happen during withdrawal, despite the standard detox protocol) 2. Hypomagnesemia: resolved M.3 --> 1.4 --> 2.0 Phos: 4.4 #Continue home med of Sertraline and supplemets (as mentioned above) #Diet: Regular diet #DVT ppx: SQ Lovenox #Code status: Full code Problem List: 1. Alcohol dependence 2. Alcohol withdrawal syndrome 3. Alcoholism /alcohol abuse Pain Ratin Pain Location: n/a Pain Goal: Remain pain free Pain Plan: n/a Tomorrow's Labs & Rationales: bep
--- NOTE | 2017-03-27 08:18 | PN- Att Addend ---
Attending Addendum Attending Brief Note Patient seen and examined. Plan of care discussed with the medical team and the patient. Available lab work and radiology test reports were reviewed. Patient reports decreased anxiety and tremors and denies any recent fever chills nausea vomiting or diarrhea. She is currently awake alert and oriented. CIWA score has been below 10. Assessment * Alcohol abuse * Alcohol intoxication * Alcohol withdrawal with moderate symptoms * Hypomagnesemia * Hyponatremia mild * History of paroxysmal atrial tachycardia Plan * Continue Ativan 1.5 mg by mouth oral every 6 [id number]. In addition start Ativan based on medium or high dose protocol; adjust Ativan if patient is excessively drowsy. * Replace magnesium * Continue other medications * Case discussed with the nursing and forensic social worker. Patient will talk to forensic social worker today about her plan for rehabilitation. * Note that Dr. Allison will be covering from tomorrow Exam: General: Patient awake alert oriented with tremors but without any distress CVS: S1 plus S2 without any murmur or gallops Chest: Few scattered crepitation without any wheeze. There is no respiratory distress. Abdomen: Soft nontender, bowel sound present, no guarding or rebound BATCH ANALYST: Awake alert oriented without any focal neuro deficit and follows command appropriately; tremors are noted of both hands Extremities: No edema; no clubbing or cyanosis noted Vital Signs Date Time Temp Pulse Resp B/P B/P Pulse O2 O2 Flow FiO2 Mean Ox Delivery Rate 03/27 0636 97.9 95 20 140/96 97 Room Air 03/27 0000 130/98 03/26 2219 98.6 83 18 136/108 99 03/26 1428 97.7 86 18 146/97 96 Room Air 03/26 1200 97.4 96 18 120/82 Intake & Output 03/27 1600 03/27 0800 03/27 0000 Intake Total 340 1025 Output Total Balance 340 1025 Intake, IV 100 225 Intake, Oral 240 800 Number 0 Bowel Movements Laboratory Tests 03/27/17 0935: Anion Gap 9, Estimated GFR > 60, BUN/Creatinine Ratio 18.3, Phosphorus 4.4, Magnesium 2.0 03/26/17 0657: Anion Gap 9, Estimated GFR > 60, BUN/Creatinine Ratio 30.0 H, Phosphorus 3.9, Magnesium 1.4 L 03/25/17 1930: Anion Gap 14, Estimated GFR > 60, BUN/Creatinine Ratio 27.1 H, Glucose 98, Calcium 8.8, Phosphorus 3.8, Magnesium 1.3 L, Total Bilirubin 0.4, AST 40 H, ALT 40, Alkaline Phosphatase 175 H, Total Protein 7.0, Albumin 4.6, Globulin 2.4, Albumin/Globulin Ratio 1.9, CBC w Diff NO MAN DIFF REQ, RBC 4.95, MCV 83.2, MCH 27.9, RDW 13.9, MPV 6.5 L, Gran % 58.4, Lymphocytes % 32.2, Monocytes % 6.3 , Eosinophils % 2.7, Basophils % 0.4, Absolute Granulocytes 4.8, Absolute Lymphocytes 2.7, Absolute Monocytes 0.5, Absolute Eosinophils 0.2, Absolute Basophils 0, PUBS MCHC 33.6, Serum Alcohol 234.0 03/25/171914: Urine Opiates Screen < 100.00, Methadone Screen < 40, Barbiturate Screen < 60, Ur Phencyclidine Scrn < 6.00, Amphetamines Screen < 100, U Benzodiazepines Scrn < 85, Urine Cocaine Screen < 50, Urine Cannabis Screen < 5.00 03/25/171914: Methadone Screen Cancelled, Barbiturate Screen Cancelled, Ur Phencyclidine Scrn Cancelled, Amphetamines Screen Cancelled, U Benzodiazepines Scrn Cancelled, Urine Cocaine Screen Cancelled, Urine Cannabis Screen Cancelled, Urine Test NEGATIVE
[2017-03-27 14:40] VITALS: BP 142/92
--- NOTE | 2017-03-27 15:26 | NUR ---
Referral received yesterday morning via electronic cook short order. Radha is a 47 year old female, admitted to the hospital on03/25/17 with ETOH Withdrawal. Radha was hospitalized here in late December of this year with the same issue and was transferred to [facility] for rehabilitation after her detox. Radha reports good feelings about her stay at [facility], and is not able to identify triggers for her relapse. Radha was placed on the CIWA; today scoring only a 1 in the domain of anxiety. She is on an ativan taper which has been titrated to 1.5mg [id number]. I met with her this morning. She was alert and oriented; pleasant and engaged in interview. She reports that she is not going to return to [facility]; instead she has a safety plan with friends "in the program" (and some who are not). 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 Radha aware that if she feels as though she needs other services or referrals, she can call us. She reports that her is in agreement with this plan. Please call me if other social work needs arise.
[2017-03-27 22:38] VITALS: BP 150/102
[2017-03-28 07:10] VITALS: BP 130/82
--- NOTE | 2017-03-28 08:00 | PN- Housestaff ---
HEMANT PALMER,GRETCHEN 03/28/17 0759: Subjective Follow-up For: Alcohol Withdrawal Subjective: Pt is doing well today. States she required 1 dose of ativan (as per nurse it was for anxiety). This morning pt denies n/v, headaches, sweats, tremor or hallucinations (auditory, visual or tactile). Pt's vitals signs are currently stable and pt was sitting comfortably in bed eating her breakfast. Pt has decided to go home after discharge. The medical social consultant will speak to her to ensure there is a definitive plan in place. Pt believes the presence of her friends and family around her while her is at work will prevent another relapse. Review of Systems Constitutional: Denies: no symptoms. Cardiovascular: Denies: no symptoms. Respiratory: Denies: no symptoms. Gastrointestinal: Denies: no symptoms. Genitourinary: Denies: no symptoms. Musculoskeletal: Denies: no symptoms. Objective Last 24 Hrs of Vital Signs/I&O Vital Signs Date Time Temp Pulse Resp B/P B/P Pulse O2 O2 Flow FiO2 Mean Ox Delivery Rate 03/28 0710 97.9 84 20 130/82 98 03/27 2238 98.0 82 18 150/102 98 Room Air 03/27 1440 97.5 100 18 142/92 98 Room Air Intake & Output 03/28 1600 03/28 0800 03/28 0000 Intake Total Output Total 500 Balance -500 Output, Urine 500 Physical Exam General Appearance: Alert, Oriented X3, Cooperative, No Acute Distress Skin Temp/Moisture Exam: Warm/Dry HEENT: Atraumatic, Mucous Membr. moist/pink Cardiovascular: Regular Rate, Normal S1, Normal S2 Lungs: Clear to Auscultation Abdomen: Normal Bowel Sounds, Soft, No Tenderness Extremities: Normal Pulses, No Tenderness/Swelling Assessment/Plan Assessment: Pt is a 47 y/o female with past medical history of alcohol dependence, alcohol withdrawal seizures, multiple episodes for detoxification, including ICU admissions for IV Ativan drip at [address] [place] [address] and later at [facility], and a recent discharge from [facility] for alcohol detoxification, history of paroxysmal atrial tachycardia presented to the ED requesting alcohol detoxification. Pt admitted to general medical floor for management of the followin. Alcohol withdrawal Patient has long-standing history of alcohol dependence with multiple detoxification episodes, more seriously history of alcohol withdrawal seizures, and a high CIWA score requiring admission. Pt has been drinking 2 bottles of vodka over past week. Last drink was at 1pm on 03/25/2017, a few hours prior to arriving at the ED. * Discontinued librium * Pt continues to do well. Max CIWA over 24 hours was 8. Pt required 1 dose of ativan PRN. Will decreased ativan today from 1.5mg PO q6h to 1mg PO q8h. * IV Ativan according to CIWA protocol medium or high dose * IV banana bag 1 * Thiamine 200 mg PO x1, continue thiamine 100mg PO daily * Continue Folic acid 1 mg oral daily * Continue Multivitamin tab 1 tab oral daily * Zofran for nausea/vomitting PRN (QTc<500) * Clonidine for high BP (can happen during withdrawal, despite the standard detox protocol) 2. Hypomagnesemia: resolved M.3 --> 1.4 --> 2.0 Phos: 4.4 #Continue home med of Sertraline and supplements (as mentioned above) #Diet: Regular diet #DVT ppx: SQ Lovenox #Code status: Full code Problem List: 1. Alcohol dependence 2. Alcohol withdrawal syndrome 3. Alcoholism /alcohol abuse Pain Ratin Pain Location: n/a Pain Goal: Remain pain free Pain Plan: tylenol PO PRN Tomorrow's Labs & Rationales: none GABINO PATEL MD 03/28/17 1325: Attending MD Review Statement Attending Statement Attending MD Statement: examined this patient, discuss w/resident/PA/PIPE ASSEMBLY WORKER, agreed w/resident/PA/PIPE ASSEMBLY WORKER, reviewed EMR data (avail), discussed with nursing, amended to note Attending Assessment/Plan: Patient seen and examined, doing well. Offers no complaints. Vital signs are stable. On exam she is not in acute distress. Abdominal exam shows soft, nontender bowel sounds positive. Her CIWA scores are running low. At this point I agree with decreasing the Ativan to 1 mg 3 times a day. Continue be and Ativan. Continue development folate and thiamine. Patient on Lovenox for DVT prophylaxis. She has been seen by medical social consultant and would like to go home when she stable for outpatient rehabilitation. Likely discharge in the next couple of days.
[2017-03-28 14:52] VITALS: BP 134/84
[2017-03-28 22:21] VITALS: BP 142/104
[2017-03-28 23:33] VITALS: BP 138/92
[2017-03-29 00:10] VITALS: BP 132/90
[2017-03-29 05:10] VITALS: BP 126/57
[2017-03-29 06:41] VITALS: BP 106/57
--- NOTE | 2017-03-29 07:27 | PN- Housestaff ---
HEMANT PALMER,GRETCHEN 03/29/17 0724: Subjective Follow-up For: Alcohol withdrawal Alcohol abuse and dependence Subjective: Overnight: pt had no acute events, max ciwa: 6. Pt denies n/v, anxiety, tremors, sweats, headaches, or hallucinations (auditory, visual, tactile). Denies fever, chills, chest pain or SOB. Pt states she has spoken to her in depth pertaining to a plan after she leaves. Plans on going to her therapist as well trying other modalities to help with addictive behavior. Review of Systems Constitutional: Denies: no symptoms, see HPI. Cardiovascular: Denies: see HPI. Respiratory: Denies: see HPI. Gastrointestinal: Denies: see HPI. Genitourinary: Denies: see HPI. Neurological/Psychological: Denies: see HPI. Objective Last 24 Hrs of Vital Signs/I&O Vital Signs Date Time Temp Pulse Resp B/P B/P Pulse O2 O2 Flow FiO2 Mean Ox Delivery Rate 03/29 0510 97.7 76 20 126/57 97 03/29 0010 98.7 78 18 132/90 98 03/28 2333 138/92 03/28 2221 98.5 94 19 142/104 100 03/28 1452 98.0 80 20 134/84 98 Room Air Intake & Output 03/29 0800 03/29 0000 03/28 1600 Intake Total 800 700 Output Total Balance 800 700 Intake, IV 100 100 Intake, Oral 700 600 Physical Exam General Appearance: Alert, Oriented X3, Cooperative, No Acute Distress Skin Temp/Moisture Exam: Warm/Dry HEENT: Atraumatic, Mucous Membr. moist/pink Cardiovascular: Regular Rate, Normal S1, Normal S2 Lungs: Clear to Auscultation Abdomen: Normal Bowel Sounds, Soft, No Tenderness Neurological: Normal Gait, Normal Speech, no tremor Extremities: Normal Pulses Assessment/Plan Assessment: Pt is a 47 y/o female with past medical history of alcohol dependence, alcohol withdrawal seizures, multiple episodes for detoxification, including ICU admissions for IV Ativan drip at [address] [place] [address] and later at [facility], and a recent discharge from [facility] for alcohol detoxification, history of paroxysmal atrial tachycardia presented to the ED requesting alcohol detoxification. Pt admitted to general medical floor for management of the followin. Alcohol withdrawal Patient has long-standing history of alcohol dependence with multiple detoxification episodes, more seriously history of alcohol withdrawal seizures, and a high CIWA score requiring admission. Pt has been drinking 2 bottles of vodka over past week. Last drink was at 1pm on 03/25/2017, a few hours prior to arriving at the ED. * Discontinued librium * Pt continues to do well. Max CIWA over 24 hours was 6. Pt did not require any additional dose of ativan PRN. Will decrease ativan today from 1mg PO q8h to 1mg PO BID * IV Ativan according to CIWA protocol medium or high dose * IV banana bag 1 * Thiamine 200 mg PO x1, continue thiamine 100mg PO daily * Continue Folic acid 1 mg oral daily * Continue Multivitamin tab 1 tab oral daily * Zofran for nausea/vomitting PRN (QTc<500) * Clonidine for high BP (can happen during withdrawal, despite the standard detox protocol) 2. Hypomagnesemia: resolved M.3 --> 1.4 --> 2.0 Phos: 4.4 #Continue home med of Sertraline and supplements (as mentioned above) Diet: Regular diet DVT ppx: SQ Lovenox Code status: Full code Dispo: discharge home tomorrow Problem List: 1. Alcohol dependence 2. Alcohol withdrawal syndrome 3. Alcoholism /alcohol abuse Pain Ratin Pain Location: none Pain Goal: Remain pain free Pain Plan: tylenol PRN Tomorrow's Labs & Rationales: none AMANDA PALMER,GABINO 03/29/17 1212: Attending MD Review Statement Attending Statement Attending MD Statement: examined this patient, discuss w/resident/PA/SALES APPLICATIONS ENGINEER, agreed w/resident/PA/SALES APPLICATIONS ENGINEER, reviewed EMR data (avail), discussed with nursing, discussed with case mgmt, amended to note Attending Assessment/Plan: Patient seen and examined, overall doing much better. CIWA scores are running very low. Vitals are stable. I agree with decreasing the Ativan further today. Last dose of Ativan will be tomorrow and then we can give her prescription for 0.5 mg of Ativan to be taken one time on Saturday. I stopped IV Tylenol and she can take oral Tylenol as needed for pain. She will be discharged tomorrow and she has already seen high school social science teacher and has developed a plan as an outpatient for alcohol rehabilitation.
--- NOTE | 2017-03-29 14:01 | Discharge Summary ---
Visit Information Visit Dates Admission Date: 03/25/17 Discharge Date: 03/30/2017 Hospital Course Course Attending Physician: GABINO COLES MD Primary Care Physician: EMRE PALMER,JACKIE Sy Hospital Course: Pt is a 47 y/o female with past medical history of alcohol dependence, alcohol withdrawal seizures, multiple episodes for detoxification, including ICU admissions for IV Ativan drip at [facility] and later at [facility], and a recent discharge from [facility] for alcohol detoxification, history of paroxysmal atrial tachycardia presented to the ED requesting alcohol detoxification. On admission: Tachycardic to 124, BP: 161/88, T: 97.9, RR: 20, pulse ox 95% on RA, CIWA score was 16. The blood pressure lowered to 129/66, pulse 109, and CIWA dropped to 6 later with IV Lorazepam. LABS: Serum alcohol 234, rest of the U tox negative CBC shows WBC 8.2, H&H 13.8/41.2, 320, MCV 83.2 Chemistry: Sodium 141, potassium 4.3, BUN 19, creatinine 0.7, glucose 98 LOW magnesium 1.3, phosphorus 3.8. LFTs shows slightly increased alkaline phosphatase at 175, AST 40, AST 40, Tbili 0.4 albumin 4.6. Urine Negative. EKG shows sinus tachycardia at 112, NC 112, QRS 80, Qtc 453, no ST-T changes. Pt was admitted to general medicine for treatment of the followin. Alcohol withdrawal: Patient has long-standing history of alcohol dependence with multiple detoxification episodes requiring ICU stay and Ativan drip w/one documented unwitnessed seizure during previous hospitalization. Pt has been drinking 2 bottles of vodka over past week. Last drink was at 1pm on 03/25/2017, a few hours prior to arriving at the ED. * Pt was initially started on librium 25mg TID placed on CIWA protocol with IV Ativan 0.5mg q1h PRN. Pt was switched to ativan 1mg q6h PO and tappered slowly requiring minimal PRN ativan doses. Pt's max CIWA during admission was 16. * Pt received IV banana bag x1, thiamine 200mg PO x1 followed by thiamine 100mg PO daily, folic acid 1mg PO daily, multivitamin 1 tab PO daily. * Pt will be discharged home with one more dose of 0.5mg ativan on 03/31/2017. * Pt should continue: - Thiamine 100mg PO daily - Folic acid 1mg PO daily - Multivitamin 1 Tab PO daily * Pt has spoken with psychologist social and : - does not wish to return to [facility] or another outpatient rehabilitation facility - has a plan in place to prevent relapse that entails constant supervision from friends and family when pt's is at work. 2. Hypomagnesemia 2/2 to alcoholism * Pt had low magnesium on admission. Magnesium was repleted. Last magnesium was 1.9. * Phoshate was normal at 4.4. Home medications were continued. Diet: Regular diet DVT ppx: SQ Lovenox Code status: Full code Dispo: discharge home Allergies: Coded Allergies: aspirin (From [employer]) (Severe, RENAL FAILURE 01/25/17) pentazocine (From [employer]) (Severe, RENAL FAILURE 01/25/17) imipramine (Mild, HIVES 01/25/17) Penicillins (RASH 01/25/17) codeine (HIVES 01/25/17) Disposition Summary Disposition Principal Diagnosis: Alcohol withdrawal Additional Diagnosis: Alcohol abuse, Hypomagnesemia Discharge Disposition: home or self care Discharge Instructions General Discharge Information Code Status: Full Code Patient's Diet: Regular Patient's Activity: Self-limited Follow-Up Instructions/Appts: 1. Please follow up with your primary care provider in 1 week 2. Please take ativan 0.5mg PO once on 03/31 in the morning 3. Please take thiamine, folate and multivitamin 4. Please call your physician or come to the ED if you experience seizures, nausea/vomitting, fever, anxiety/agitation, confusion Medications at Discharge Discharge Medications: Continue taking these medications: Sertraline HCl (Sertraline HCl) 100 MG TABLET 1.5 Tablet ORAL DAILY Qty = 45 Comments: Last Taken: 03/30/17 Time: 0845 AM Calcium Carbonate/Vitamin D3 (Calcium 500 + D Tablet) (Unknown Strength) TABLET 1 Tablet ORAL DAILY Comments: NOT GIVEN IN HOSPITAL Folic Acid (Folic Acid) 1 MG TABLET 1 Milligram ORAL DAILY Qty = 30 Comments: Last Taken: 03/30/17 Time: 0845 AM Multivitamin (One Daily Multivitamin) 1 EACH TABLET 1 Tablet ORAL DAILY Qty = 30 Comments: Last Taken: 03/30/17 Time: 0845 Thiamine HCl (Vitamin B-1) 100 MG TABLET 100 Milligram ORAL DAILY Qty = 30 Comments: Last Taken: 03/30/17 Time: 0845 AM Omeprazole (Omeprazole) 20 MG CAPSULE. 40 Milligram ORAL DAILY BEFORE BREAKFAST Qty = 30 Comments: NOT GIVEN IN HOSPITAL Acamprosate Calcium (Acamprosate Calcium) 333 MG TABLET. 2 Tablet ORAL THREE TIMES DAILY Qty = 180 Comments: NOT GIVEN IN HOSPITAL Start taking the following new medications: Lorazepam (Ativan) 0.5 MG TABLET 1 Tablet ORAL GIVE ONCE Qty = 1 No Refills Instructions: . Comments: 1 MG GIVEN Last Taken: 03/30/17 Time: 0845 AM Copies To: EMRE PALMER,JACKIE Sy
[2017-03-29] MEDS ORDERED: ATIVAN0.5 M1 PO (14:10)
--- NOTE | 2017-03-29 14:13 | Patient Discharge Instructions ---
Discharge Instructions General Discharge Information You were seen/treated for: Alcohol Withdrawal Special Instructions: 1. Please follow up with your primary care provider in 1 week 2. Please take ativan 0.5mg PO once on 03/31 in the morning 3. Please take thiamine, folate and multivitamin 4. Please call your physician or come to the ED if you experience seizures, nausea/vomitting, fever, anxiety/agitation, confusion Diet Continue normal diet: Yes Activity Full Activity/No Limits: No Activity Self Limited: Yes Acute Coronary Syndrome Inclusion Criteria At DC or during hospital stay patient has or had the following: ACS DIAGNOSIS No Discharge Core Measures Meds if any: Prescribed or Continued at Discharge Meds if any: NOT Prescribed or Continued at Discharge Congestive Heart Failure Inclusion Criteria At DC or during hospital stay patient has or had the following: CHF DIAGNOSIS No Discharge Core Measures Meds if any: Prescribed or Continued at Discharge Meds if any: NOT Prescribed or Continued at Discharge Cerebrovascular accident Inclusion Criteria At DC or during hospital stay patient has or had the following: CVA/TIA Diagnosis No Discharge Core Measures Meds if any: Prescribed or Continued at Discharge Meds if any: NOT Prescribed or Continued at Discharge Venous thromboembolism Inclusion Criteria VTE Diagnosis No VTE Type NONE VTE Confirmed by (Test) NONE Discharge Core Measures - Per Current guidelines, there needs to be overlap - treatment for the first 5 days of Warfarin therapy. - If discharged on Warfarin prior to 5 days of - overlap therapy, the patient will need to be - assessed for post discharge needs including - *Post discharge parental anticoagulation - *Warfarin and/or parental anticoagulation education - *Follow up date to check INR post discharge At least 5 days overlap therapy as Inpatient No Meds if any: Prescribed or Continued at Discharge Note: Overlap Therapy is Warfarin and Anticoagulant Meds if any: NOT Prescribed or Continued at Discharge
[2017-03-29 14:38] VITALS: BP 134/60
[2017-03-29 16:00] VITALS: BP 134/60
[2017-03-29 23:14] VITALS: BP 108/73
[2017-03-30 06:55] VITALS: BP 101/76
--- NOTE | 2017-03-30 14:58 | PN- Housestaff ---
Subjective Follow-up For: Alcohol Detox Subjective: I saw and examined the patient this AM. Pt was doing well. Did not require any additional ativan overnight. Pt's CIWA this morning is 0. Pt denies n/v, anxiety /agitation, tremors, headaches/cloudiness, sweating or hallucinations. Pt denies SOB or chest pain. Review of Systems Constitutional: Denies: see HPI. Cardiovascular: Denies: see HPI. Respiratory: Denies: see HPI. Gastrointestinal: Denies: see HPI. Genitourinary: Denies: no symptoms. Objective Last 24 Hrs of Vital Signs/I&O Vital Signs Date Time Temp Pulse Resp B/P B/P Pulse O2 O2 Flow FiO2 Mean Ox Delivery Rate 03/30 0655 97.6 73 18 101/76 98 Room Air 03/29 2314 97.3 88 18 108/73 99 Room Air Intake & Output 03/30 1600 03/30 0800 03/30 0000 Intake Total 1800 10 1000 Output Total Balance 1800 10 1000 Intake, IV 0 10 Intake, Oral 1800 1000 Number 0 Bowel Movements Physical Exam General Appearance: Alert, Cooperative, No Acute Distress Skin Temp/Moisture Exam: Warm/Dry HEENT: Atraumatic, Mucous Membr. moist/pink Cardiovascular: Regular Rate, Normal S1, Normal S2 Lungs: Clear to Auscultation Abdomen: Normal Bowel Sounds, Soft, No Tenderness Extremities: Normal Pulses Assessment/Plan Assessment: Pt is a 47 y/o female with past medical history of alcohol dependence, alcohol withdrawal seizures, multiple episodes for detoxification, including ICU admissions for IV Ativan drip at [address] [place] [address] and later at [facility], and a recent discharge from [facility] for alcohol detoxification, history of paroxysmal atrial tachycardia presented to the ED requesting alcohol detoxification. Pt admitted to general medical floor for management of the followin. Alcohol withdrawal Patient has long-standing history of alcohol dependence with multiple detoxification episodes, more seriously history of alcohol withdrawal seizures, and a high CIWA score requiring admission. Pt has been drinking 2 bottles of vodka over past week. Last drink was at 1pm on 03/25/2017, a few hours prior to arriving at the ED. * Discontinued librium * Pt continues to do well. Max CIWA over 24 hours was 0. Pt did not require any additional dose of ativan PRN. Will give ativan 1mg PO today and send home to take 0.5mg ativan tomorrow. * IV Ativan according to CIWA protocol medium or high dose * IV banana bag 1 * Thiamine 200 mg PO x1, continue thiamine 100mg PO daily * Continue Folic acid 1 mg oral daily * Continue Multivitamin tab 1 tab oral daily * Zofran for nausea/vomitting PRN (QTc<500) * Clonidine for high BP (can happen during withdrawal, despite the standard detox protocol) 2. Hypomagnesemia: resolved M.3 --> 1.4 --> 2.0 Phos: 4.4 #Continue home med of Sertraline and supplements (as mentioned above) Diet: Regular diet DVT ppx: SQ Lovenox Code status: Full code Dispo: discharge home today Problem List: 1. Alcohol dependence 2. Alcohol withdrawal syndrome 3. Alcoholism /alcohol abuse Pain Ratin Pain Location: none Pain Goal: Remain pain free Pain Plan: none Tomorrow's Labs & Rationales: none
[2017-03-30] MEDS ORDERED: ATIVAN0.5 M1 PO (16:03)
== END 2017-03-30 16:41 | DRG 897 ==
LOC: ERH 18:04 → ERHI 22:59 → 2NB 22:59 → ENRESERV 23:16 → 2NB 03-26 00:10
PROVIDERS: Physician Assistant; ADMIT Internal Medicine
DX: F10.239 Alcohol dependence with withdrawal, unspecified (principal); R56.9 Unspecified convulsions; E83.42 Hypomagnesemia; I47.1 Supraventricular tachycardia; E87.1 Hypo-osmolality and hyponatremia; I10 Essential (primary) hypertension
CPT/HCPCS: 2NBP; ERO; 36415; 80307; 81025; 82436; 93005; 93010; 96361; 96374; G0480; J0131; J1650; J3490; J7060